=== PATIENT | male | born 1955 | race Caucasian/White ===

== ENCOUNTER → 2020-03-25 08:18 | Outpatient (BNVA) | payer MEDICARE, SELFPAY | PROVIDERS: PCP Registered Nurse; Visit Provider Internal Medicine | DX: I25.10 Atherosclerotic heart disease of native coronary artery without angina pectoris (principal); I10 Essential (primary) hypertension; I77.810 Thoracic aortic ectasia | CPT/HCPCS: 93005; 99212 ==

== ENCOUNTER 2020-08-09 18:23 | Emergency (ER) | payer MEDICARE, SELFPAY ==
--- NOTE | 2020-08-09 18:37 | ED.GENADULT ---
HPI - General Adult General Chief complaint: General Medical Stated complaint: FOOD STUCK IN THROAT Time Seen by Provider: 08/09/20 18:34 Source: patient and EMS Mode of arrival: EMS Limitations: no limitations History of Present Illness HPI narrative: 65 y/o male with history of HTN, CAD, DM who presents to the ED with feeling of food stuck in his throat. Right after he ate pot roast and potatoes for lunch at noon time he has had a feeling that the food is stuck in his throat. He has been able to drink some water but still felt like he had something stuck in there. He has no nausea, vomiting or abdominal pain. No shortness of breath or chest pain. This has never happened to him before. MD complaint: food stuck in throat Onset (ago): hour(s) (7) Location: neck Severity: moderate Quality: aching Pain Consistency: constant Relieving factors: none Exacerbating factors: eating Associated symptoms: denies other symptoms Treatments prior to arrival: none Related Data Home Medications Medication Instructions Recorded Confirmed aspirin 81 mg tablet,delayed 81 mg PO DAILY 03/25/20 03/25/20 release calcium citrate 200 mg 0 tab PO 03/25/20 03/25/20 calcium-vitamin D3 6.25 mcg (250 unit) tablet carvedilol 6.25 mg tablet 6.25 mg PO BID 03/25/20 03/25/20 fluoxetine 20 mg capsule 20 mg PO DAILY 03/25/20 03/25/20 folic acid 1 mg tablet 1 mg PO DAILY 03/25/20 03/25/20 gabapentin 300 mg capsule 300 mg PO TID 03/25/20 03/25/20 lisinopril 10 mg tablet 10 mg PO DAILY 03/25/20 03/25/20 metformin 500 mg tablet,extended 500 mg PO DAILY 03/25/20 03/25/20 release 24 hr multivitamin 1 tab PO DAILY 03/25/20 03/25/20 nitroglycerin 0.4 mg sublingual 0.4 mg SUBLINGUAL Q5M PRN 03/25/20 03/25/20 tablet omeprazole 20 mg capsule,delayed 20 mg PO DAILY 03/25/20 03/25/20 release secukinumab 150 mg/mL subcutaneous mg SUBCUT Q4W 03/25/20 03/25/20 pen injector umeclidinium 62.5 mcg/actuation 0 inh INHALATION 03/25/20 03/25/20 blister powder for inhalation Previous Rx's Medication Instructions Recorded atorvastatin 80 mg tablet 80 mg PO DAILY #90 tab 04/07/20 Allergies Allergy/AdvReac Type Severity Reaction Status Date / Time mirtazapine [From REMER[facility]] Allergy Intermediate NAUSEA Verified 08/09/20 18:46 phenytoin Allergy Unknown NAUSEA/VOMITING Verified 08/09/20 18:46 STOMACH UPSET Review of Systems Review of Systems: Constitutional: No Fever, No Chills ENT/Mouth: + sore throat, No Rhinorrhea, + Swallowing Difficulty, +Painful swallowing Cardiovascular: No Chest Pain, No SOB Respiratory: No Cough, No Sputum, No Wheezing, No dyspnea Gastrointestinal: No Nausea, No Vomiting, No Diarrhea, No abdominal Pain Musculoskeletal: No joint pain, No Myalgias Skin: No Skin Lesions, + rash Neuro: No Weakness, No Numbness, No Dizziness, No Headache Heme/Lymph: No Bruising, No Lymphadenopathy PMFSH Past Medical History Attestation statement: The following information was validated with the patient. Medical History Ascending aorta dilatation Atherosclerotic cardiovascular disease Diabetes Essential hypertension Gout Osteoarthritis Surgical History (Updated 03/25/20 @ 08:46 by ALBERTO Bean) No pertinent past surgical history Family History Family History (Updated 03/25/20 @ 08:42 by ALBERTO Bean) Family/Other No problems noted. Mother NSTEMI (non-ST elevated myocardial infarction) CVD (cardiovascular disease) Brother CVD (cardiovascular disease) NSTEMI (non-ST elevated myocardial infarction) Sister CVD (cardiovascular disease) NSTEMI (non-ST elevated myocardial infarction) Social History Social History (Updated 03/25/20 @ 08:41 by ALBERTO Bean) Advance Directives: No Advance Directives Information Provided: No Physical Exam Vital Signs: Vital Signs: Last Vital Signs Temp 97.9 F 08/09/20 18:43 Pulse 91 08/09/20 18:43 Resp 16 08/09/20 18:43 BP 135/87 08/09/20 18:43 Pulse Ox 97 08/09/20 18:43 Body Mass Index 27.8 Appearance: Alert. Oriented X3. No acute distress. Eyes: Pupils equal, round and reactive to light. ENT: Pharynx normal. Neck: Normal inspection. Neck supple. CVS: Normal heart rate and rhythm. Pulses normal. Respiratory: No respiratory distress. Breath sounds normal. Abdomen: Soft and nontender. +BS x4 Skin: Skin warm and dry. Normal skin color. Normal skin turgor. Erythematous plaque on forehead and neck, chronic. no warmth Extremities: No lower extremity edema. Neuro: Oriented X 3. No motor deficit. No sensory deficit. Course Course Course Narrative: 65 y/o male with foreign body sensation in the esophagus after eating pot roast 7 hours ago. He is able to tolerate thin liquids. He was also able to tolerate applesauce here in the ED, strongly favoring against esophageal obstruction. He is able to eat and drink. He is stable for discharge home with plan to f/u with GI if symptoms persist. He was encouraged to continue a soft diet until symptoms resolve. Patient expressed understanding. Discharge Plan Discharge Clinical Impression: Esophageal spasm Patient Disposition: Home, Self-Care Instructions: Esophageal Foreign Body (ED) Additional Instructions: Recommend following up with GI doctor tomorrow if you are still having symptoms. Stick to a soft diet until all of your symptoms are resolved. Because you are able to drink and eat applesauce, we know your esophagus is not blocked with food. If you are unable to tolerating drinking liquids or eating any soft foods results in vomiting come back to the ER for further evaluation. Follow up with your doctor this week. Prescriptions: No Action atorvastatin 80 mg tablet 80 mg PO DAILY Qty: 90 RF: 3 Cosentyx Pen (2 Pens) 150 mg/mL pen injector subcut Q4W RF: 0 calcium citrate-vitamin D3 200 mg-6.25 mcg (250 unit) tablet 0 tab PO RF: 0 metformin 500 mg tablet extended release 24 hr 500 mg PO DAILY RF: 0 fluoxetine 20 mg capsule 20 mg PO DAILY RF: 0 folic acid 1 mg tablet 1 mg PO DAILY RF: 0 omeprazole 20 mg capsule,delayed release(DR/EC) 20 mg PO DAILY RF: 0 gabapentin 300 mg capsule 300 mg PO TID RF: 0 lisinopril 10 mg tablet 10 mg PO DAILY RF: 0 aspirin 81 mg tablet,delayed release (DR/EC) 81 mg PO DAILY RF: 0 carvedilol 6.25 mg tablet 6.25 mg PO BID RF: 0 multivitamin Tablet 1 tab PO DAILY RF: 0 Incruse Ellipta 62.5 mcg/actuation blister with device 0 inh inhalation RF: 0 nitroglycerin 0.4 mg tablet, sublingual 0.4 mg sublingual Q5M PRNRF: 0 Referrals: Gregg Gunter MD [Physician] - 2 days (esophageal foreign body (sensation))
[2020-08-09 18:43] VITALS: BP 135/87; BP 138/88; PULSE 91; RESP 16; TEMP 36.6; O2SAT 97; O2SAT 98; BMI 27.8
--- NOTE | 2020-08-09 19:55 | PC.NURSE ---
KAYLEE Cobos contacted pt's [facility] and asked if they have a way to provide transport for pt to be returned to facility. Staff member contacted her customer service supervisor and called [facility] [place] with update. This RN spoke with [facility] staff member who states My customer service supervisor said 'hopefully he has money on him because we aren't able to provide a ride.' This RN explained that this facility is also unable to provide transportation and that pt will be DC to waiting room until he's able to obtain transportation home. [facility] staff states that's ok, sounds good, thank you.
== END 2020-08-09 20:49 | disposition home or self-care (01) ==
LOC: HO.ED 19:31
PROVIDERS: Emergency Provider Emergency Medicine; PCP Registered Nurse
DX: K22.4 Dyskinesia of esophagus (principal); I10 Essential (primary) hypertension; I25.10 Atherosclerotic heart disease of native coronary artery without angina pectoris; E11.9 Type 2 diabetes mellitus without complications; Z79.84 Long term (current) use of oral hypoglycemic drugs; Z79.899 Other long term (current) drug therapy
CPT/HCPCS: 99282; 99283

== ENCOUNTER → 2020-09-22 09:45 | Outpatient (REF) | payer MEDICARE, SELFPAY ==
--- NOTE | 2020-09-22 09:48 | CA_ITS ---
Transthoracic Echocardiogram Patient (Last, First, Middle): Casey Castrejon B Gender: Male Date of : 1955 Age: 65 Procedure Date: 09/22/2020 Procedure Type: Transthoracic Echocardiogram Location: OP Height: 182.88 cm Weight: 90.72 kg BSA: 2.13 m2 Heart Rate: bpm BP: 118 / 56 mmHg Contract Mail Carrier: Referring MD: Gilbert Sommers MD Symptoms: I77.810 - Thoracic aortic ectasia Study Quality: Fair ECG Rhythm: Sinus Conclusions: - The left ventricular systolic function is normal. The visually estimated ejection fraction is between 55-60%. - No obvious valvular pathology seen on this study. - There is mild dilatation of the ascending aorta measuring 4.20 cm. Findings Left Ventricle Normal left ventricular cavity size. There is mildly increased left ventricular wall thickness. The left ventricular systolic function is normal. The visually estimated ejection fraction is between 55-60%. There is no evidence of regional wall motion abnormalities. E/E prime ratio is between 8 and 15 consistent with indeterminate filling pressures. Evidence suggests grade I (mild) diastolic dysfunction. Right Ventricle Mildly increased right ventricular cavity size. There is normal right ventricular systolic function. Atria The left atrium is normal in size. The right atrium is normal in size. Aortic Valve There is a normal trileaflet aortic valve. There is no aortic valve stenosis. There is no aortic valve regurgitation. Mitral Valve The mitral valve appears normal. There is no mitral valve regurgitation. There is no mitral valve stenosis. Pulmonic Valve The pulmonic valve was not well visualized. Tricuspid Valve Normal tricuspid valve structure. There is no tricuspid valve regurgitation. The pulmonary artery systolic pressure is normal. Great Vessels There is mild dilatation of the ascending aorta measuring 4.20 cm. Venous The inferior vena cava is normal in size and collapses less than 50% with inspiration. Pericardium/Pleural There is no evidence of pericardial effusion. Prior Study Comparison No significant change compared to prior study dated: 11/04/2019. Recommendations, Care & Conclusions No obvious valvular pathology seen on this study. Measurements 2D Linear Measurements IVSd: 1.21 0.6-0.9/0.6-1.0 cm LVIDd: 4.51 3.9-5.3/4.2-5.9 cm LVIDd Index: 2.12 2.4-3.2/2.2-3.1 cm/m2 LVIDs: 3.44 2.0-3.6 cm LVPWd: 1.20 0.7-1.1 cm Ao Root: 3.90 2.1-3.5 cm LA Diam: 3.50 2.7-3.8/3.0-4.0 cm LAIDs Index: 1.64 1.5-2.3 cm/m2 LV Mass: 249.23 67-162/88-224 g LV Mass Index: 117.01 43-95/49-115 g/m2 LVOT Diam: 2.40 3.0+(-)1.3 cm 2D Systolic Function EF 4C: 55.20 >55% EF 2C: 52.80 >55% Mitral Valve MV Pk E: 0.50 MV PK A: 0.78 MV Decel Time: 186.00 E/A: 0.60 E'Lateral: 4.90 E'Medial: 4.46 E/E' Med: 11.10 E/E' Lat: 10.10 PHT: 55.00 MVA PHT: 4.00 Decel [place]: 2.67 Aortic Valve AoV Pk [place]: 0.86 AoV Mn [place]: 0.52 AoV VTI: 0.21 AoV Pk Grad: 3.00 Aov Mn Grad: 1.00 GOLDIE Cont.VTI: 3.31 LVOT LVOT Pk [place]: 0.59 LVOT Mn [place]: 0.35 LVOT VTI: 0.15 LVOT Pk Grad: 1.00 LVOT Mn Grad: 1.00 LVOT Diam: 2.40 LVOT Area: 4.52 Diastolic Function MV Pk E: 0.50 MV Pk A: 0.78 E/A: 0.60 E'Medial: 4.46 E/E' Med: 11.10 E' Laterial: 4.90 E/E' Lat: 10.10 Right Ventricle TAPSE (mm): 18.00 Tricuspid Valve TR Pk [place]: 1.83 TR Pk Grad: 13.00 RA Press: 8.00 RVSP: 16.00 Great Vessels Aorta Ao Root-2D: 3.90 2.0-3.7 cm Ao Asc: 4.20 2.1-3.4 cm Pulmonary Valve PV Pk [place]: 0.73 Peak PV Grad: 2.00 Updated in Other Vendor System with Status of Final Gilbert Sommers MD electronically signed on 09/23/2020 12:36:23 PM with status of Final
== END ==
LOC: HO.CARD 09:45
PROVIDERS: Visit Provider Internal Medicine
DX: I77.810 Thoracic aortic ectasia (principal)
CPT/HCPCS: 93306

== ENCOUNTER → 2020-09-28 09:18 | Outpatient (BNVA) | payer MEDICARE, SELFPAY | PROVIDERS: PCP Registered Nurse; Visit Provider Internal Medicine | DX: I25.10 Atherosclerotic heart disease of native coronary artery without angina pectoris (principal); I77.810 Thoracic aortic ectasia; I10 Essential (primary) hypertension | CPT/HCPCS: 99212 ==

== ENCOUNTER 2020-12-02 21:47 | Emergency (ER) | payer MEDICARE, SELFPAY ==
--- NOTE | ~2020-12-02 | XR_ITS ---
EXAMINATION: XR CHEST CLINICAL INFORMATION: Pneumonia COMPARISON: Chest x-ray September 28, 2018 TECHNIQUE: Frontal portable view of the chest was obtained. 10:36 PM FINDINGS: No significant abnormality is noted involving the heart, lungs, mediastinum, bony thorax or soft tissues. XR/XR chest 1V IMPRESSION: Unremarkable examination.
[2020-12-02 22:01] VITALS: BP 177/102; PULSE 92; O2SAT 98; BMI 27.8
[2020-12-02 22:07] VITALS: BP 164/95; PULSE 86; RESP 16; TEMP 37.1; O2SAT 96
[2020-12-02 23:09] LABS: Influenza A PCR NEGATIVE (Negative); Influenza B PCR NEGATIVE (Negative); Resp Syncy Virus RNA Qual PCR POSITIVE (Negative); SARS COV2 PCR INHOUSE NEGATIVE (Negative)
--- NOTE | 2020-12-03 00:23 | ED_ITS ---
HPI - URI/Sore Throat General Chief Complaint: Upper Respiratory Symptoms Stated Complaint: FLU LIKE SYMPTOMS Time Seen by Provider: 12/02/20 22:34 Source: patient Mode of arrival: ambulatory Limitations: no limitations History of Present Illness HPI Narrative: 65-year-old patient with past medical history of hypertension, CAD presents to ED for cough for couple of days. Patient denies any chest pain or shortness of breath. Patient denies any swelling of lower extremities, weakness, dizziness, coughing up blood, or calf pain. Patient unknown if any exposed to COVID Related Data Home Medications Medication Instructions Recorded Confirmed aspirin 81 mg tablet,delayed 81 mg PO DAILY 03/25/20 09/28/20 release calcium citrate 200 mg 0 tab PO 03/25/20 09/28/20 calcium-vitamin D3 6.25 mcg (250 unit) tablet carvedilol 6.25 mg tablet 6.25 mg PO BID 03/25/20 09/28/20 fluoxetine 20 mg capsule 20 mg PO DAILY 03/25/20 09/28/20 folic acid 1 mg tablet 1 mg PO DAILY 03/25/20 09/28/20 gabapentin 300 mg capsule 300 mg PO TID 03/25/20 09/28/20 lisinopril 10 mg tablet 10 mg PO DAILY 03/25/20 09/28/20 metformin 500 mg tablet,extended 500 mg PO DAILY 03/25/20 09/28/20 release 24 hr multivitamin 1 tab PO DAILY 03/25/20 09/28/20 nitroglycerin 0.4 mg sublingual 0.4 mg SUBLINGUAL Q5M PRN 03/25/20 09/28/20 tablet omeprazole 20 mg capsule,delayed 20 mg PO DAILY 03/25/20 09/28/20 release secukinumab 150 mg/mL subcutaneous mg SUBCUT Q4W 03/25/20 09/28/20 pen injector umeclidinium 62.5 mcg/actuation 0 inh INHALATION 03/25/20 09/28/20 blister powder for inhalation Previous Rx's Medication Instructions Recorded atorvastatin 80 mg tablet 80 mg PO DAILY #90 tab 04/07/20 albuterol sulfate 90 mcg/actuation 2 puff INHALATION QID PRN #8.5 g 12/03/20 aerosol inhaler benzonatate 100 mg capsule 100 mg PO TID PRN #15 cap 12/03/20 (Elisha Molina) Allergies Allergy/AdvReac Type Severity Reaction Status Date / Time mirtazapine [From REMERON] Allergy Intermediate NAUSEA Verified 09/28/20 09:25 phenytoin Allergy Unknown NAUSEA/VOMITING Verified 09/28/20 09:25 STOMACH UPSET Review of Systems Review of Systems: Yes all other systems are reviewed and are negative Constitutional: Constitutional: Reports as per HPI and Reports no additional constitutional complaints Eyes: Eyes: Reports as per HPI and Reports no additional eye complaints ENT: Reports system reviewed and no additional complaints, except as documented and Reports as per HPI Cardiovascular: Cardiovascular: Reports as per HPI and Reports no additional cardiovascular complaints Respiratory: Respiratory: Reports as per HPI and Reports no additional respiratory complaints Gastrointestinal: Gastrointestinal: Reports as per HPI and Reports no additional gastrointestinal complaints Genitourinary: Genitourinary: Reports no additional male genitourinary complaints and Reports as per HPI Musculoskeletal: Musculoskeletal: Reports no additional musculoskeletal complaints and Reports as per HPI Neurologic: Reports system reviewed and no additional complaints, except as documented and Reports as per HPI Psychiatric: Psychiatric: Reports no additional psychiatric complaints and Reports as per HPI [facility] Past Medical History Medical History Ascending aorta dilatation Atherosclerotic cardiovascular disease Diabetes Essential hypertension Gout Osteoarthritis Surgical History No pertinent past surgical history Family History Family History Family/Other No problems noted. Mother NSTEMI (non-ST elevated myocardial infarction) CVD (cardiovascular disease) Brother CVD (cardiovascular disease) NSTEMI (non-ST elevated myocardial infarction) Sister CVD (cardiovascular disease) NSTEMI (non-ST elevated myocardial infarction) Social History Social History (Updated 09/28/20 @ 09:25 by ALBERTO Bean) Patient Tobacco Use Status: Never used Tobacco Advance Directives: No Physical Exam Vital Signs: Vital Signs: Last Vital Signs Temp 98.7 F 12/02/20 22:07 Pulse 86 12/02/20 22:07 Resp 16 12/02/20 22:07 BP 164/95 H 12/02/20 22:07 Pulse Ox 96 10/13/21 22:07 Body Mass Index 27.8 Const: General: cooperative, healthy appearing, comfortable, no acute distress, well developed and alert Orientation/consciousness: patient oriented x3 HENMT: Head: Yes normal to inspection, Yes No palpable skull fracture present, Yes normocephalic, Yes atraumatic and No abrasion Eyes: General: appearance normal, both eyes and all related structures Neck: Neck: Yes normal visual inspection, Yes full ROM, Yes no lymphadenopathy, Yes no meningeal signs, Yes trachea midline, Yes supple and No tender Chest: Chest palpation & inspection: normal inspection of the chest and normal palpation of entire chest wall Resp: Effort & Inspection: normal respiratory effort and able to speak in complete sentences Auscultation: clear to auscultation bilaterally Cardio: Jugular venous distension: no JVD Heart sounds: S1 normal heart sound present and S2 normal heart sound present GI: Inspection: Yes normal to inspection and No abdominal wall ecchymosis Palpation (GI): Soft to palpation, not firm, nontender, no guarding and not rigid : General: No CVA tenderness and Yes no CVA tenderness Back/Spine/Pelvis: Back: no CVA tenderness, No CVA tenderness and No back tenderness Skin: General skin exam: no rashes or lesions noted and elasticity normal Neuro: General: patient oriented x3, gait normal, no meningeal signs and CN's II-XI intact bilaterally Cranial nerves: Yes CN's II-XII intact bilaterally Extrem: General: Yes normal to inspection and Yes full ROM Psych: Other: Negative for swelling of lower extremity, calf tenderness, pitting edema Appearance: grossly normal, well kempt and not disheveled Course Course Course Narrative: Patient COVID swab chest x-ray Reevaluation(s) Reevaluation #1: Patient came back positive for RSV and COVID swab is negative. Patient is not in distress. Patient vital signs are stable. Patient is not hypoxic. Patient is safe for discharge Time: 00:31 MDM - URI/Sore Throat MDM Narrative Medical decision making narrative: RSV Lab Data Labs: Lab Results 12/02/20 Range/Units 22:27 Coronavirus (PCR) NEGATIVE (Negative) Influenza Type A (PCR) NEGATIVE (Negative) Influenza Type B (PCR) NEGATIVE (Negative) RSV RNA Qual (PCR) POSITIVE A (Negative) Discharge Plan Discharge Clinical Impression: RSV bronchitis Patient Disposition: Home, Self-Care Instructions: Respiratory Syncytial Virus (ED), Acute Bronchitis (ED) Additional Instructions: Came back positive for RSV. Chest x-ray negative for pneumonia. You will be discharged with albuterol inhaler and Tessalon Perles for cough. Return to the ED for any chest pain, shortness of breath, weakness, dizziness, or any other concerning symptoms. Please follow-up with primary care provider Prescriptions: New albuterol sulfate 90 mcg/actuation HFA aerosol inhaler 2 puff inhalation QID PRN (Reason: shortness of breath or wheezing) Qty: 8.5 RF: 0 benzonatate [Tessalon Perles] 100 mg capsule 100 mg PO TID PRN (Reason: cough) Qty: 15 RF: 0 No Action atorvastatin 80 mg tablet 80 mg PO DAILY Qty: 90 RF: 3 Cosentyx Pen (2 Pens) 150 mg/mL pen injector subcut Q4W RF: 0 calcium citrate-vitamin D3 200 mg-6.25 mcg (250 unit) tablet 0 tab PO RF: 0 metformin 500 mg tablet extended release 24 hr 500 mg PO DAILY RF: 0 fluoxetine 20 mg capsule 20 mg PO DAILY RF: 0 folic acid 1 mg tablet 1 mg PO DAILY RF: 0 omeprazole 20 mg capsule,delayed release(DR/EC) 20 mg PO DAILY RF: 0 gabapentin 300 mg capsule 300 mg PO TID RF: 0 lisinopril 10 mg tablet 10 mg PO DAILY RF: 0 aspirin 81 mg tablet,delayed release (DR/EC) 81 mg PO DAILY RF: 0 carvedilol 6.25 mg tablet 6.25 mg PO BID RF: 0 multivitamin Tablet 1 tab PO DAILY RF: 0 Incruse Ellipta 62.5 mcg/actuation blister with device 0 inh inhalation RF: 0 nitroglycerin 0.4 mg tablet, sublingual 0.4 mg sublingual Q5M PRNRF: 0 Print Language: [place]
== END 2020-12-03 02:50 | disposition home or self-care (01) ==
PROVIDERS: Physician Assistant; Emergency Provider Emergency Medicine; PCP Registered Nurse
DX: J20.5 Acute bronchitis due to respiratory syncytial virus (principal); I10 Essential (primary) hypertension; E11.9 Type 2 diabetes mellitus without complications; I25.10 Atherosclerotic heart disease of native coronary artery without angina pectoris; Z79.82 Long term (current) use of aspirin; Z79.84 Long term (current) use of oral hypoglycemic drugs; Z79.899 Other long term (current) drug therapy; Z20.822 Contact with and (suspected) exposure to COVID-19
CPT/HCPCS: 0241U; 36415; 71045; 99283

== ENCOUNTER 2021-07-28 15:33 | Emergency (ER) | payer MEDICARE, SELFPAY ==
--- NOTE | ~2021-07-28 | CT_ITS ---
EXAMINATION: CT CERVICAL SPINE WITHOUT CONTRAST CLINICAL INFORMATION: Head trauma. EtOH. COMPARISON: None available. TECHNIQUE: Multidetector helical imaging of the cervical spine was obtained without intravenous contrast. Multiple axial reformats and coronal/sagittal reconstructions were created the technologist workstation for review. This CT examination was performed using dose optimization techniques as appropriate, variously including the following: *Automated exposure control. *Adjustment of mA and/or kV according to patient size (this includes techniques or standardized protocols for targeted exams where dose is matched to indication/reason for exam; i.e. extremities or head). *Use of iterative reconstruction technique. DLP: 490 mGy-cm FINDINGS: The atlantooccipital and atlantoaxial articulations remain well aligned. Moderate right convex curvature of the cervical spine. Mild degenerative anterolisthesis of C4 on C5. Otherwise, there is anatomic alignment of the vertebral bodies and posterior elements. No evidence of acute fracture or subluxation. The vertebral body heights and disc spaces are maintained. Advanced degenerative disc disease at C5-C6 and C6-C7. Moderate degenerative disc disease at C4-C5 and C7-T1. There is no prevertebral soft tissue swelling. The thyroid gland and remaining cervical soft tissues are normal in appearance. The lung apices demonstrate no abnormalities. SPINAL LEVELS: C2-C3: Mild disc-osteophyte complex. There is mild left and no right uncovertebral joint arthropathy. There is moderate left and mild right facet joint arthropathy. There is mild left and no right neural foraminal stenosis. There is no demonstrated spinal canal stenosis. C3-C4: Moderate disc-osteophyte complex. There is moderate left and no right uncovertebral joint arthropathy. There is severe left and mild right facet joint arthropathy. There is moderate left and no right neural foraminal stenosis. There appears to be mild spinal canal stenosis. C4-C5: Moderate disc-osteophyte complex. There is moderate left and no right uncovertebral joint arthropathy. There is severe left and mild right facet joint arthropathy. There is moderate left and no right neural foraminal stenosis. There is no demonstrated spinal canal stenosis. C5-C6: Moderate disc-osteophyte complex. There is severe bilateral uncovertebral joint arthropathy. There is moderate bilateral facet joint arthropathy. There is severe bilateral neural foraminal stenosis. There appears to be mild spinal canal stenosis. C6-C7: Moderate disc-osteophyte complex. There is severe bilateral uncovertebral joint arthropathy. There is moderate bilateral facet joint arthropathy. There is severe bilateral neural foraminal stenosis. There appears to be mild spinal canal stenosis. C7-T1: Mild disc-osteophyte complex. There is no uncovertebral joint arthropathy. There is mild bilateral facet joint arthropathy. There is no neural foraminal stenosis. There is no demonstrated spinal canal stenosis. CT/CT cervical spine wo con IMPRESSION: 1. No evidence of acute fracture or traumatic subluxation of the cervical spine. 2. Moderate to advanced multilevel degenerative spondyloarthropathy of the cervical spine as described in detail above. Most notably on this limited exam without intrathecal contrast, there appears to be mild spinal canal stenosis at C3-C4, C5-C6, and C6-C7. Moderate to severe neural foraminal stenoses from C3-C7.
--- NOTE | ~2021-07-28 | CT_ITS ---
EXAMINATION: CT HEAD WITHOUT CONTRAST CLINICAL INFORMATION: Trauma, rule out head injury. COMPARISON: 03/10/[address] scan[address] TECHNIQUE: Contiguous axial imaging was performed from the skull base to vertex without intravenous administration of contrast. Coronal and sagittal reformatted images were obtained. This CT examination was performed using dose optimization techniques as appropriate, variously including the following: *Automated exposure control *Adjustment of mA and/or kV according to patient size (this includes techniques or standardized protocols for targeted exams where dose is matched to indication/reason for exam; i.e. extremities or head) *Use of iterative reconstruction technique DLP: 761 mGy-cm FINDINGS: There is mild widening of the cortical sulci and associated ventriculomegaly. The lateral ventricles are symmetrical. Mild periventricular microvascular changes are seen. The third and fourth ventricles are in their normal midline position. The basilar and prepontine cisterns are unremarkable. There is no acute intra or extracerebral abnormality. There is no mass effect or midline shift. Sections through the bony calvarium are unremarkable. The orbits are intact. The paranasal sinuses show mild mucosal thickening in the sphenoid sinuses bilaterally, but otherwise are clear. Left ruth bullosa. The mastoid air cells are clear. CT/CT head/brain wo con IMPRESSION: No acute intracranial pathology.
[2021-07-28 15:55] VITALS: BP 126/86; PULSE 78; O2SAT 97
--- NOTE | 2021-07-28 16:16 | ED.ALCOHOL ---
HPI - Alcohol General Chief Complaint: Fall Stated Complaint: Fall ETOH Source: patient and EMS Mode of arrival: EMS Limitations: no limitations History of Present Illness HPI narrative: 66-year-old male presents via EMS for ETOH intoxication and injuries sustained from a fall. Patient is not complaining of any pain but is unable to describe the incident and may have lost consciousness. He has not had any prior visits for ETOH intoxication, however reports alcohol intake on a regular basis. MD complaint: alcohol intoxication Last drink: Just prior to admission Chronic alcohol use: Yes Previous visits for alcohol intoxication: No Recent trauma: Yes Associated symptoms: denies other symptoms Treatments prior to arrival: cervical collar Related Data Home Medications Medication Instructions Recorded Confirmed aspirin 81 mg tablet,delayed 81 mg PO DAILY 03/25/20 09/28/20 release calcium citrate 200 mg 0 tab PO 03/25/20 09/28/20 calcium-vitamin D3 6.25 mcg (250 unit) tablet carvedilol 6.25 mg tablet 6.25 mg PO BID 03/25/20 09/28/20 fluoxetine 20 mg capsule 20 mg PO DAILY 03/25/20 09/28/20 folic acid 1 mg tablet 1 mg PO DAILY 03/25/20 09/28/20 gabapentin 300 mg capsule 300 mg PO TID 03/25/20 09/28/20 lisinopril 10 mg tablet 10 mg PO DAILY 03/25/20 09/28/20 metformin 500 mg tablet,extended 500 mg PO DAILY 03/25/20 09/28/20 release 24 hr multivitamin 1 tab PO DAILY 03/25/20 09/28/20 nitroglycerin 0.4 mg sublingual 0.4 mg sublingual Q5M PRN 03/25/20 09/28/20 tablet omeprazole 20 mg capsule,delayed 20 mg PO DAILY 03/25/20 09/28/20 release secukinumab 150 mg/mL subcutaneous mg subcut Q4W 03/25/20 09/28/20 pen injector umeclidinium 62.5 mcg/actuation 0 inh inhalation 03/25/20 09/28/20 blister powder for inhalation Previous Rx's Medication Instructions Recorded albuterol sulfate 90 mcg/actuation 2 puff inhalation QID PRN 12/03/20 aerosol inhaler shortness of breath or wheezing #8.5 grams benzonatate 100 mg capsule 100 mg PO TID PRN cough #15 caps 12/03/20 (Elisha Molina) atorvastatin 80 mg tablet 80 mg PO DAILY #90 tabs 03/01/21 Allergies Allergy/AdvReac Type Severity Reaction Status Date / Time mirtazapine [From [facility]] Allergy Intermediate NAUSEA Verified 09/28/20 09:25 phenytoin Allergy Unknown NAUSEA/VOMITING Verified 09/28/20 09:25 STOMACH UPSET Review of Systems Review of Systems: Constitutional: No Fever, No Chills ENT/Mouth: No Ear Pain, No Hoarseness, No sore throat Eyes: No Eye Pain, No Swelling, No Redness, No Foreign Body Cardiovascular: No Chest Pain, No SOB Respiratory: No Cough, No Dyspnea Gastrointestinal: No Nausea, No Vomiting, No Diarrhea, No abdominal Pain Genitourinary: No Dysuria, No Hematuria Musculoskeletal: positive neck pain, No Myalgias, No Joint Swelling Skin: No Skin lacerations, No rash Neuro: No Weakness, No Numbness, No Paresthesias, No Loss of Consciousness, No Dizziness, No Headache Psych: No Anxiety/Panic, No Depression Heme/Lymph: no easy bruising, no Lymphadenopathy Endocrine: No Polyuria, No Polydipsia Yes all other systems are reviewed and are negative [facility] Past Medical History Attestation statement: The following information was validated with the patient. Source: old records reviewed Medical History Ascending aorta dilatation Atherosclerotic cardiovascular disease Diabetes Essential hypertension Gout Osteoarthritis Surgical History No pertinent past surgical history Family History Family History Family/Other No problems noted. Mother NSTEMI (non-ST elevated myocardial infarction) CVD (cardiovascular disease) Brother CVD (cardiovascular disease) NSTEMI (non-ST elevated myocardial infarction) Sister CVD (cardiovascular disease) NSTEMI (non-ST elevated myocardial infarction) Social History Social History Alcohol intake: current Alcohol intake frequency: 3 or more drinks per day Alcohol type: beer Patient Tobacco Use Status: Never used Tobacco Use of substances other than those prescribed or required for medical reasons: No Advance Directives: Yes Advance Directives Information Provided: No Advance Directives on File: No Physical Exam ED Vital Signs: Vital Signs - 24 hr 07/28/21 18:06 Temperature 97.5 F Pulse Rate 65 Respiratory Rate 19 Blood Pressure 136/70 Pulse Oximetry 99 Oxygen Delivery Method Room Air BMI result Body Mass Index 26.4 Appearance: Alert. Oriented X3. No acute distress. Eyes: Pupils equal, round and reactive to light. Sclera nonicteric. EOMI. No pain on extraocular movements. ENT: Pharynx normal. Moist mucous membranes. Neck: Normal inspection. Neck supple. Tenderness noted to C5 on palpation. C-collar in place. CVS: Normal heart rate and rhythm. Pulses normal. Respiratory: No respiratory distress. Breath sounds normal. Abdomen: Soft and nontender. Skin: Skin warm and dry. Normal skin color. Normal skin turgor. Extremities: No lower extremity edema. Moves all extremities against resistance. Neuro: No motor deficit. No sensory deficit. Cranial nerves 2-12 intact. NIH Stroke Scale Internal: Initial- Upon Arrival Level of Consciousness: Alert Level of Consciousness Questions: Answers both questions correctly Level of Consciousness Commands: Performs both tasks correctly Best Gaze: Normal Visual: No visual loss Facial Palsy: Normal Motor Arm (Right): No drift Motor Arm (Left): No drift Motor Leg (Right): No drift Motor Leg (Left): No drift Limb Ataxia: Absent Sensory: Normal Best Language: No aphasia Dysarthia: Normal Extinction and Inattention: No abnormality Score: 0 Course Course Course Narrative: 66-year-old male presents via EMS for ETOH intoxication with fall. Patient does not recall the entire events of the fall, and is complaining of neck pain at this time. He is in a C-collar which was placed by EMS. He does have full range of motion to all extremities, states to drink on a regular basis but has not visited this facility for ETOH intoxication in the past. He has had multiple visits for other medical concerns. At this time will order CT scan of head and cervical spine and EKG. Patient is not complaining any other illnesses, stated to have been in good health prior to his alcohol consumption. 18:20 CT head negative for acute findings requiring emergent intervention. CT cervical spine is pending at this time. Updated patient that he must keep his C-collar in place until CT cervical spine is read. 19:59 CT cervical spine negative for acute findings requiring emergent intervention. Will discharge this patient home with follow-up with primary care physician. Patient is not interested in detox at this time. Patient verbalized understanding of and agrees to plan of care to discharge home. Verbalized understanding of signs and symptoms indicating need for emergent intervention MDM - Alcohol MDM Narrative Medical decision making narrative: CVA, subdural, cervical fracture Differential Diagnosis Differential diagnosis: Likely alcohol dependence and alcohol intoxication Medical Records Attestation: I reviewed the patient's medical records. Lab Data Attestation: I reviewed the patient's lab results. Labs: Lab Results 07/28/21 Range/Units 18:02 POC Glucose 101 (60-115) mg/dL Imaging Data CT head cervical spine: Attestation: I personally reviewed and interpreted this imaging study as follows: Radiologist's impression: FINDINGS: There is mild widening of the cortical sulci and associated ventriculomegaly. The lateral ventricles are symmetrical. Mild periventricular microvascular changes are seen. The third and fourth ventricles are in their normal midline position. The basilar and prepontine cisterns are unremarkable. There is no acute intra or extracerebral abnormality. There is no mass effect or midline shift. Sections through the bony calvarium are unremarkable. The orbits are intact. The paranasal sinuses show mild mucosal thickening in the sphenoid sinuses bilaterally, but otherwise are clear. Left ruth bullosa. The mastoid air cells are clear. CT/CT head/brain wo con IMPRESSION: No acute intracranial pathology. FINDINGS: The atlantooccipital and atlantoaxial articulations remain well aligned. Moderate right convex curvature of the cervical spine. Mild degenerative anterolisthesis of C4 on C5. Otherwise, there is anatomic alignment of the vertebral bodies and posterior elements. No evidence of acute fracture or subluxation. The vertebral body heights and disc spaces are maintained. Advanced degenerative disc disease at C5-C6 and C6-C7. Moderate degenerative disc disease at C4-C5 and C7-T1. There is no prevertebral soft tissue swelling. The thyroid gland and remaining cervical soft tissues are normal in appearance. The lung apices demonstrate no abnormalities. SPINAL LEVELS: C2-C3: Mild disc-osteophyte complex.? There is mild left and no right uncovertebral joint arthropathy. There is moderate left and mild right facet joint arthropathy. There is mild left and no right neural foraminal stenosis. There is no demonstrated spinal canal stenosis. C3-C4: Moderate disc-osteophyte complex.? There is moderate left and no right uncovertebral joint arthropathy. There is severe left and mild right facet joint arthropathy. There is moderate left and no right neural foraminal stenosis. There appears to be mild spinal canal stenosis. C4-C5: Moderate disc-osteophyte complex.? There is moderate left and no right uncovertebral joint arthropathy. There is severe left and mild right facet joint arthropathy. There is moderate left and no right neural foraminal stenosis. There is no demonstrated spinal canal stenosis. C5-C6: Moderate disc-osteophyte complex.? There is severe bilateral uncovertebral joint arthropathy. There is moderate bilateral facet joint arthropathy. There is severe bilateral neural foraminal stenosis. There appears to be mild spinal canal stenosis. C6-C7: Moderate disc-osteophyte complex.? There is severe bilateral uncovertebral joint arthropathy. There is moderate bilateral facet joint arthropathy. There is severe bilateral neural foraminal stenosis. There appears to be mild spinal canal stenosis. C7-T1: Mild disc-osteophyte complex.? There is no uncovertebral joint arthropathy. There is mild bilateral facet joint arthropathy. There is no neural foraminal stenosis. There is no demonstrated spinal canal stenosis. CT/CT cervical spine wo con IMPRESSION: 1. No evidence of acute fracture or traumatic subluxation of the cervical spine. ? 2. Moderate to advanced multilevel degenerative spondyloarthropathy of the cervical spine as described in detail above. Most notably on this limited exam without intrathecal contrast, there appears to be mild spinal canal stenosis at C3-C4, C5-C6, and C6-C7. Moderate to severe neural foraminal stenoses from C3-C7.? ? ECG Data ECG #1: Attestation: I personally reviewed and interpreted this ECG as follows: ECG interpretation date: 07/28/21 ECG interpretation time: 17:57 Prior ECG tracings: available for review Interpretation: Vent. rate 67 BPM WA interval 182 ms QRS duration 90 ms QT/QTc 398/420 ms P-R-T axes -9 19 33 Normal sinus rhythm Normal ECG When compared with ECG of 29-SEP-2018 07:46, No significant change was found Discharge Plan Discharge Clinical Impression: Fall, Alcohol intoxication Patient Disposition: Home, Self-Care Instructions: Alcohol Intoxication (ED), Fall Prevention (ED) Additional Instructions: You were evaluated for injuries sustained from a fall. CT scan of head and cervical spine are negative for acute findings requiring emergent intervention. Please consider drinking less alcohol. Thank you for choosing this emergency department for evaluation. Please follow-up with primary care physician as needed. Return to the emergency department for any new, concerning, or worsening symptoms. Prescriptions: No Action atorvastatin 80 mg tablet 80 mg PO DAILY Qty: 90 3RF albuterol sulfate 90 mcg/actuation HFA aerosol inhaler 2 puff inhalation QID PRN (Reason: shortness of breath or wheezing) Qty: 8.5 0RF benzonatate [Tessalon Perles] 100 mg capsule 100 mg PO TID PRN (Reason: cough) Qty: 15 0RF Cosentyx Pen (2 Pens) 150 mg/mL pen injector subcut Q4W calcium citrate-vitamin D3 200 mg-6.25 mcg (250 unit) tablet 0 tab PO metformin 500 mg tablet extended release 24 hr 500 mg PO DAILY fluoxetine 20 mg capsule 20 mg PO DAILY folic acid 1 mg tablet 1 mg PO DAILY omeprazole 20 mg capsule,delayed release(DR/EC) 20 mg PO DAILY gabapentin 300 mg capsule 300 mg PO TID lisinopril 10 mg tablet 10 mg PO DAILY aspirin 81 mg tablet,delayed release (DR/EC) 81 mg PO DAILY carvedilol 6.25 mg tablet 6.25 mg PO BID multivitamin Tablet 1 tab PO DAILY Incruse Ellipta 62.5 mcg/actuation blister with device 0 inh inhalation nitroglycerin 0.4 mg tablet, sublingual 0.4 mg sublingual Q5M PRN Rx Instructions: do not exceed 3 doses per episode Referrals: Franchesca Sykes NP [Primary Care Provider] -
--- NOTE | 2021-07-28 16:28 | ECG_ITS ---
Test Reason : FALL Blood Pressure : / mmHG Vent. Rate : 067 BPM Atrial Rate : 067 BPM P-R Int : 182 ms QRS Dur : 090 ms QT Int : 398 ms P-R-T Axes : -09 019 033 degrees QTc Int : 420 ms Normal sinus rhythm Normal ECG When compared with ECG of 29-SEP-2018 07:46, No significant change was found Referred By: Cassie Lund Electronically Signed By:ARELI AGUILA
[2021-07-28 18:05] LABS: Glucose, Whole Blood 101 mg/dL (60-115)
[2021-07-28 18:06] VITALS: BP 136/70; PULSE 65; RESP 19; TEMP 36.4; O2SAT 99; BMI 26.4
--- NOTE | 2021-07-28 22:31 | PC.NURSE ---
pt comes from [facility], spoke with Rosa Maria, they are unable to get pt a ride home until the morning.
--- NOTE | 2021-07-28 22:33 | PC.NURSE ---
[facility] Contact Info: Rosa Maria (director):
--- NOTE | 2021-07-29 03:40 | PC.NURSE ---
call out to [facility] spoke to Taylor, to notify that pt is ready for discharge and needs a ride. Taylor states that it will likely be around 8am
[2021-07-29 03:42] VITALS: BP 143/81; PULSE 73; RESP 18; TEMP 37.3; O2SAT 96
--- NOTE | 2021-07-29 07:27 | PC.NURSE ---
pt sleeping comfortbly. no c/o pain or discomfort. awaiting ride
== END 2021-07-29 09:24 | disposition home or self-care (01) ==
PROVIDERS: Emergency Provider Internal Medicine; PCP Registered Nurse
DX: F10.220 Alcohol dependence with intoxication, uncomplicated (principal); Y90.9 Presence of alcohol in blood, level not specified; M54.2 Cervicalgia; Z91.81 History of falling
CPT/HCPCS: 70450; 72125; 82947; 93005; 99284

== ENCOUNTER → 2021-09-23 13:29 | Outpatient (REF) | payer OTHER, SELFPAY ==
--- NOTE | 2021-09-23 13:31 | CA_ITS ---
Transthoracic Echocardiogram Patient (Last, First, Middle): Casey Castrejon B Gender: Male Date of : 1955 Age: 66 Procedure Date: 09/23/2021 Procedure Type: Transthoracic Echocardiogram Location: OP Height: 182.88 cm Weight: 90.72 kg BSA: 2.13 m2 Heart Rate: bpm BP: 130 / 70 mmHg Legislative Assistant: RODOLFO Referring MD: Gilbert Sommers MD Powerhouse Mechanic Apprentice: Nic Mendoza MD Symptoms: I77.810 - Thoracic aortic ectasia Study Quality: Fair ECG Rhythm: Sinus Conclusions: - 1. Normal LV systolic function with impaired relaxation filling pattern next 2. Limited visualization of cardiac valves with normal cardiac valvular Doppler 3. Mildly dilated ascending aorta at 4.2 cm Findings Left Ventricle Normal left ventricular size, thickness, and systolic function. The visually estimated ejection fraction is between 60-65%. Regional wall motion abnormalities can not be excluded due to suboptimal endocardial definition. Spectral Doppler is indicative of an impaired relaxation filling pattern. E/E prime ratio is between 8 and 15 consistent with indeterminate filling pressures. Right Ventricle The right ventricle was not well visualized. There is normal right ventricular systolic function. Atria The left atrium is normal in size. Interatrial shunt cannot be excluded. The right atrium is normal in size. Aortic Valve The aortic valve was not well visualized. There is no aortic valve stenosis. There is no aortic valve regurgitation. Mitral Valve The mitral valve was not well visualized. There is trace mitral valve regurgitation. There is no mitral valve stenosis. Pulmonic Valve The pulmonic valve was not well visualized. Tricuspid Valve The tricuspid valve was not well visualized. Tricuspid regurgitation envelope is inadequate for calculation of right ventricular systolic pressure. Great Vessels The pulmonary artery was not well visualized. There is mild dilatation of the ascending aorta measuring 4.20 cm. Venous The inferior vena cava was not well visualized. Pericardium/Pleural The pericardium was not well visualized. Prior Study Comparison No significant change compared to prior study dated: 09/22/2020. Recommendations, Care & Conclusions Recommend contrast in the future to improve endocardial definition. Measurements 2D Linear Measurements IVSd: 1.01 0.6-0.9/0.6-1.0 cm LVIDd: 4.11 3.9-5.3/4.2-5.9 cm LVIDd Index: 1.93 2.4-3.2/2.2-3.1 cm/m2 LVIDs: 2.81 2.0-3.6 cm LVPWd: 0.91 0.7-1.1 cm LA Diam: 3.10 2.7-3.8/3.0-4.0 cm LAIDs Index: 1.46 1.5-2.3 cm/m2 LV Mass: 209.47 67-162/88-224 g LV Mass Index: 98.34 43-95/49-115 g/m2 LVOT Diam: 2.10 3.0+(-)1.3 cm 2D Systolic Function EF 4C: 62.90 >55% EF 2C: 59.50 >55% EF BiP: 61.80 >55% Mitral Valve MV Pk E: 0.65 MV PK A: 0.93 MV Decel Time: 259.00 E/A: 0.70 E'Lateral: 5.98 E'Medial: 4.57 E/E' Med: 14.20 E/E' Lat: 10.80 PHT: 76.00 MVA PHT: 2.89 Decel Mono: 2.50 Aortic Valve AoV Pk Franklin: 0.94 AoV Mn Franklin: 0.61 AoV VTI: 0.21 AoV Pk Grad: 4.00 Aov Mn Grad: 2.00 GOLDIE Cont.VTI: 3.16 LVOT LVOT Pk Franklin: 0.75 LVOT Mn Franklin: 0.49 LVOT VTI: 0.19 LVOT Pk Grad: 2.00 LVOT Mn Grad: 1.00 LVOT Diam: 2.10 LVOT Area: 3.46 Diastolic Function MV Pk E: 0.65 MV Pk A: 0.93 E/A: 0.70 E'Medial: 4.57 E/E' Med: 14.20 E' Laterial: 5.98 E/E' Lat: 10.80 Right Ventricle TAPSE (mm): 21.20 TVS' Franklin: 10.60 Great Vessels Aorta Sinus of Valsalva: 3.88 2.0-3.[address] Ridge: 3.32 1.7-3.4 cm Ao Asc: 4.20 2.1-3.4 cm Updated in Other Vendor System with Status of Final Nic Mendoza MD electronically signed on 09/24/2021 5:07:31 PM with status of Final
== END ==
LOC: HO.CARD 13:29
PROVIDERS: PCP Registered Nurse; Visit Provider Internal Medicine
DX: I77.810 Thoracic aortic ectasia (principal)
CPT/HCPCS: 93306

== ENCOUNTER 2021-10-01 03:20 | Emergency (ER) | payer OTHER, SELFPAY ==
--- NOTE | ~2021-10-01 | CT_ITS ---
EXAMINATION: CT ABDOMEN AND PELVIS WITHOUT CONTRAST CLINICAL INFORMATION: Left abdominal pain. Rule out kidney stone. COMPARISON: 07/29/2018 TECHNIQUE: Multidetector volumetric imaging was performed from the superior aspect of the liver through the pubic symphysis. Sagittal and coronal reformatted images were obtained on the technologist's workstation. This CT examination was performed using dose optimization techniques as appropriate, variously including the following: *Automated exposure control *Adjustment of mA and/or kV according to patient size (this includes techniques or standardized protocols for targeted exams where dose is matched to indication/reason for exam; i.e. extremities or head) *Use of iterative reconstruction technique DLP: 575 mGy-cm FINDINGS: LUNG BASES: The visualized lung bases are unremarkable. LIVER, GALLBLADDER, AND BILIARY TREE: The liver is normal in size, shape, and attenuation. No focal hepatic lesion or biliary ductal dilatation is present. The gallbladder is unremarkable with no evidence of radiopaque gallstones, gallbladder wall thickening, or obvious pericholecystic inflammatory changes. PANCREAS: Unremarkable. SPLEEN: Unremarkable. ADRENAL GLANDS: Unremarkable. KIDNEYS AND URETERS: The kidneys are normal in size, shape, and attenuation. No hydronephrosis, hydroureter, or calculi seen. Symmetric perinephric stranding. BLADDER: Normally distended with mild circumferential wall thickening. GASTROINTESTINAL TRACT: The stomach is unremarkable. Normal caliber small bowel. No obstruction. Normal appendix. No colonic wall thickening or acute inflammatory change. Minimal diverticulosis without diverticulitis. No free air or free fluid. ABDOMINAL WALL: No significant hernia is appreciated. LYMPH NODES: Normal. VASCULAR: Normal caliber aorta with minimal atherosclerotic calcification. PELVIC VISCERA: The prostate and seminal vesicles are unremarkable. OSSEOUS STRUCTURES: No acute or suspicious osseous abnormality. Grade 2 anterolisthesis of L4 on L5 with associated bilateral pars defects. Vacuum disc phenomenon at this level. Mild degenerative changes of the hips. CT/CT abdomen pelvis wo con IMPRESSION: No acute finding of the abdomen or pelvis. No hydronephrosis or nephrolithiasis. Symmetric perinephric stranding which is chronic. Circumferential bladder wall thickening without inflammation. This could be associated with underdistention or outlet obstruction. Fleischner guidelines were followed.
[2021-10-01 03:23] VITALS: BP 170/80; PULSE 77; O2SAT 100
[2021-10-01 03:28] VITALS: BP 170/80; BMI 27.1
[2021-10-01 03:36] VITALS: BP 178/103; PULSE 79; RESP 22; TEMP 36.2; O2SAT 97
--- NOTE | 2021-10-01 03:37 | ECG_ITS ---
Test Reason : ABD PAIN Blood Pressure : / mmHG Vent. Rate : 078 BPM Atrial Rate : 078 BPM P-R Int : 156 ms QRS Dur : 084 ms QT Int : 356 ms P-R-T Axes : -12 020 034 degrees QTc Int : 405 ms Normal sinus rhythm Normal ECG When compared with ECG of 28-JUL-2021 17:57, No significant change was found Referred By: Jaleel Ulloa Electronically Signed By:ARELI AGUILA
--- NOTE | 2021-10-01 03:43 | ED.ABDPAIN ---
HPI - Abdominal Pain General Chief Complaint: Abdominal Pain Stated Complaint: stomache pain Time Seen by Provider: 10/01/21 03:36 Source: patient and EMS Mode of arrival: EMS Limitations: no limitations History of Present Illness HPI narrative: 66-year-old male came in by ambulance for evaluation of left-sided abdominal pain with feeling nauseous and dry heaving. Patient is a half-way resident live independently normally walk with a cane, patient has a history of alcohol dependent still currently drink alcohol as per patient not as heavy as he used to. Describe left side abdominal pain that started suddenly couple hours before arrival described as a constant severe pain /, no radiation to the pain, pain is associated with nausea and vomiting, nothing relieves the pain, nothing make it worse, patient documented normal bowel movements and normal urination, no previous abdominal surgery as per patient. No abdominal trauma, no fever, no chills, no diarrhea. No history of kidney stones or intra-abdominal pathology. Related Data Home Medications Medication Instructions Recorded Confirmed aspirin 81 mg tablet,delayed 81 mg PO DAILY 03/25/20 09/28/20 release calcium citrate 200 mg 0 tab PO 03/25/20 09/28/20 calcium-vitamin D3 6.25 mcg (250 unit) tablet carvedilol 6.25 mg tablet 6.25 mg PO BID 03/25/20 09/28/20 fluoxetine 20 mg capsule 20 mg PO DAILY 03/25/20 09/28/20 folic acid 1 mg tablet 1 mg PO DAILY 03/25/20 09/28/20 gabapentin 300 mg capsule 300 mg PO TID 03/25/20 09/28/20 lisinopril 10 mg tablet 10 mg PO DAILY 03/25/20 09/28/20 metformin 500 mg tablet,extended 500 mg PO DAILY 03/25/20 09/28/20 release 24 hr multivitamin 1 tab PO DAILY 03/25/20 09/28/20 nitroglycerin 0.4 mg sublingual 0.4 mg sublingual Q5M PRN 03/25/20 09/28/20 tablet omeprazole 20 mg capsule,delayed 20 mg PO DAILY 03/25/20 09/28/20 release secukinumab 150 mg/mL subcutaneous mg subcut Q4W 03/25/20 09/28/20 pen injector umeclidinium 62.5 mcg/actuation 0 inh inhalation 03/25/20 09/28/20 blister powder for inhalation Previous Rx's Medication Instructions Recorded albuterol sulfate 90 mcg/actuation 2 puff inhalation QID PRN 12/03/20 aerosol inhaler shortness of breath or wheezing #8.5 grams benzonatate 100 mg capsule 100 mg PO TID PRN cough #15 caps 12/03/20 (Elisha Molina) atorvastatin 80 mg tablet 80 mg PO DAILY #90 tabs 03/01/21 Allergies Allergy/AdvReac Type Severity Reaction Status Date / Time mirtazapine [From REM[facility]] Allergy Intermediate NAUSEA Verified 09/28/20 09:25 phenytoin Allergy Unknown NAUSEA/VOMITING Verified 09/28/20 09:25 STOMACH UPSET Review of Systems Review of Systems All other systems are reviewed and are negative Constitutional: Reports as per HPI and Reports no additional constitutional complaints Eyes: Reports as per HPI and Reports no additional eye complaints Reports system reviewed and no additional complaints, except as documented Cardiovascular: Reports as per HPI and Reports no additional cardiovascular complaints Respiratory: Reports as per HPI and Reports no additional respiratory complaints Gastrointestinal: Reports as per HPI and Reports no additional gastrointestinal complaints Genitourinary: Reports no additional female genitourinary complaints Musculoskeletal: Reports no additional musculoskeletal complaints Skin/Breast: Reports system reviewed and no additional complaints, except as docu Psychiatric: Reports no additional psychiatric complaints Endocrine: Reports no additional endocrine complaints Hematologic/Lymphatic: Reports no additional hematologic/lymphatic complaints Allergic/Immunologic: Reports no additional allergic/immunologic complaints Reports system reviewed and no additional complaints, except as documented and Reports Abnormal speech present COUNT INCLUDES THE [facility] Past Medical History Medical History Ascending aorta dilatation Atherosclerotic cardiovascular disease Diabetes Essential hypertension Gout Osteoarthritis Surgical History No pertinent past surgical history Family History Family History Family/Other No problems noted. Mother NSTEMI (non-ST elevated myocardial infarction) CVD (cardiovascular disease) Brother CVD (cardiovascular disease) NSTEMI (non-ST elevated myocardial infarction) Sister CVD (cardiovascular disease) NSTEMI (non-ST elevated myocardial infarction) Social History Social History Alcohol intake: current Alcohol intake frequency: 3 or more drinks per day Alcohol type: beer Patient Tobacco Use Status: Never used Tobacco Advance Directives: Yes Advance Directives Information Provided: No Advance Directives on File: No Physical Exam ED Vital Signs: Vital Signs - 24 hr 10/01/21 03:36 10/01/21 06:20 Temperature 97.2 F Pulse Rate 79 72 Respiratory Rate 22 H 20 Blood Pressure 178/103 H 170/82 H Pulse Oximetry 97 97 Oxygen Delivery Method Room Air Room Air BMI result Body Mass Index 27.1 Vital signs have been reviewed as appeared to be correct. Blood pressure normal. Heart rate normal. Respiration rate normal. Temperature normal. Oxygen saturation normal. Appearance: Alert. Oriented X3. No acute distress. Head: Normal external exam. Normocephalic. Atraumatic. No Georges signs noted. No raccoon eyes noted Eyes: PERRLA. EOMI. Conjunctiva and sclera normal. Eyelids normal. ENT: TM's Normal. Pharynx normal. Uvula midline. Moist mucous membranes. No trismus noted. No drooling noted. No muffled voice noted. Neck: Normal inspection. Neck supple. FROM. No adenopathy. Thyroid Normal. No meningeal signs. No neck mass noted. CVS: Normal heart rate and rhythm. Heart sound normal. No murmurs noted. Pulses normal throughout. Respiratory: No respiratory distress. Painless inspiration. Breath sounds normal. No wheezes/rales/rhonchi noted. Chest nontender. No accessory muscle usage noted or decreased air movement noted. Abdomen: Soft, obese, left abdominal tenderness, no guarding, no rebound tenderness.. Bowel sounds normal in all 4 quadrants. No distention noted. No organomegaly noted. No visible injury noted. Back: No CVA tenderness. Full range of motion noted. Skin: Skin warm and dry. Normal skin color. Normal skin turgor. No rashes/lesions/lacerations noted. Extremities: No lower extremity edema. Extremities exhibit normal range of motion. Extremities nontender. Neuro: Oriented X 3. Cranial nerve exam: II-XII are grossly intact No motor deficit. No sensory deficit. Reflexes normal. Course Course Course Narrative: 66-year-old male came in for left-sided abdominal pain and vomiting patient had negative workup in the emergency room including CT of the abdomen pelvis, patient now feels better and able to tolerate p.o. intake without vomiting or abdominal pain. Will discharge back to the half-way. MDM - Abdominal Pain Medical Records Attestation: I reviewed the patient's medical records. Lab Data Attestation: I reviewed the patient's lab results. Result diagrams: 10/01/21 03:47 10/01/21 03:47 Labs: Lab Results 10/01/21 10/01/21 10/01/21 Range/Units 03:47 03:47 03:47 WBC 8.8 (4.8-10.8) X10*3/uL RBC 3.92 L (4.60-5.80) X10*6/uL Hgb 12.4 L (14.0-18.0) g/dl Hct 35.8 L (42.0-52.0) % MCV 91.3 (80.0-98.0) fL MCH 31.6 (27.0-33.0) pg MCHC 34.6 (31.0-36.0) g/dl RDW 12.6 (11.0-16.0) % Plt Count 160 (160-400) X10*3/uL MPV 9.2 L (9.4-12.4) fL Immature Gran % (Auto) 0.5 H (0.0-0.4) % Neut % (Auto) 81.9 H (45-73) % Lymph % (Auto) 10.4 L (20-40) % [place] % (Auto) 5.7 (2-11) % Eos % (Auto) 1.2 (0-4) % Baso % (Auto) 0.3 (0-2) % Lymph # (Auto) 0.9 L (1.2-4.9) X10*3/uL [place] # (Auto) 0.5 (0.1-1.2) X10*3/uL Eos # (Auto) 0.1 (0.0-0.4) X10*3/uL Baso # (Auto) 0.0 (0.0-0.2) X10*3/uL Abs Immat Gran (auto) 0.04 H (0.00-0.03) X10*3/uL Absolute Neuts (auto) 7.2 (2.0-8.3) x10*3/uL Absolute Nucleated RBC 0.000 (0.0-0.012) X10*3/uL Nucleated RBC % (auto) 0.0 (0.0-0.2) /100WBC Sodium 132 L (135-145) mmol/L Potassium 5.0 (3.3-5.1) mmol/L Chloride 97 (96-108) mmol/L Carbon Dioxide 23 (22-29) mmol/L Anion Gap 17 (12-20) BUN 9 (9-16) mg/dL Creatinine 0.99 (0.5-1.4) mg/dL Estim Creat Clear Calc 80.5 Estimated GFR > 60 Random Glucose 148 H (60-115) mg/dL Calcium 9.2 (8.4-10.2) mg/dL Total Bilirubin 0.7 (0.0-1.0) mg/dL Direct Bilirubin 0.3 (0.0-0.5) mg/dL AST 19 (5-37) U/L ALT 13 (0-40) U/L Alkaline Phosphatase 98 (39-117) U/L Troponin I High Sens 6.5 (<3.5-35.0) ng/L B-Natriuretic Peptide 87 (<100) pg/mL Total Protein 7.4 (6.5-8.0) g/dL Albumin 4.4 (3.5-5.0) g/dL Lipase 35 (8-78) U/L Urine Color Urine Appearance Urine pH (5.0-8.0) Ur Specific [place] (1.005-1.025) Urine Protein (NEG-TRACE) MG/DL Urine Glucose (UA) (NEG) MG/DL Urine Ketones (NEG) MG/DL Urine Blood (NEG) Urine Nitrite (NEG) Ur Leukocyte Esterase (NEG) Ethyl Alcohol < 10 mg/dL 10/01/21 Range/Units 03:47 WBC (4.8-10.8) X10*3/uL RBC (4.60-5.80) X10*6/uL Hgb (14.0-18.0) g/dl Hct (42.0-52.0) % MCV (80.0-98.0) fL MCH (27.0-33.0) pg MCHC (31.0-36.0) g/dl RDW (11.0-16.0) % Plt Count (160-400) X10*3/uL MPV (9.4-12.4) fL Immature Gran % (Auto) (0.0-0.4) % Neut % (Auto) (45-73) % Lymph % (Auto) (20-40) % [place] % (Auto) (2-11) % Eos % (Auto) (0-4) % Baso % (Auto) (0-2) % Lymph # (Auto) (1.2-4.9) X10*3/uL [place] # (Auto) (0.1-1.2) X10*3/uL Eos # (Auto) (0.0-0.4) X10*3/uL Baso # (Auto) (0.0-0.2) X10*3/uL Abs Immat Gran (auto) (0.00-0.03) X10*3/uL Absolute Neuts (auto) (2.0-8.3) x10*3/uL Absolute Nucleated RBC (0.0-0.012) X10*3/uL Nucleated RBC % (auto) (0.0-0.2) /100WBC Sodium (135-145) mmol/L Potassium (3.3-5.1) mmol/L Chloride (96-108) mmol/L Carbon Dioxide (22-29) mmol/L Anion Gap (12-20) BUN (9-16) mg/dL Creatinine (0.5-1.4) mg/dL Estim Creat Clear Calc Estimated GFR Random Glucose (60-115) mg/dL Calcium (8.4-10.2) mg/dL Total Bilirubin (0.0-1.0) mg/dL Direct Bilirubin (0.0-0.5) mg/dL AST (5-37) U/L ALT (0-40) U/L Alkaline Phosphatase (39-117) U/L Troponin I High Sens (<3.5-35.0) ng/L B-Natriuretic Peptide (<100) pg/mL Total Protein (6.5-8.0) g/dL Albumin (3.5-5.0) g/dL Lipase (8-78) U/L Urine Color YELLOW Urine Appearance CLEAR Urine pH 6.0 (5.0-8.0) Ur Specific [place] 1.010 (1.005-1.025) Urine Protein NEG (NEG-TRACE) MG/DL Urine Glucose (UA) NEG (NEG) MG/DL Urine Ketones NEG (NEG) MG/DL Urine Blood NEG (NEG) Urine Nitrite NEG (NEG) Ur Leukocyte Esterase NEG (NEG) Ethyl Alcohol mg/dL Discharge Plan Discharge Clinical Impression: Abdominal pain Patient Disposition: Xfer [facility] Transfer Details: Back to the half-way Instructions: Abdominal Pain (ED) Prescriptions: No Action atorvastatin 80 mg tablet 80 mg PO DAILY Qty: 90 3RF albuterol sulfate 90 mcg/actuation HFA aerosol inhaler 2 puff inhalation QID PRN (Reason: shortness of breath or wheezing) Qty: 8.5 0RF benzonatate [Tessalon Perles] 100 mg capsule 100 mg PO TID PRN (Reason: cough) Qty: 15 0RF Cosentyx Pen (2 Pens) 150 mg/mL pen injector subcut Q4W calcium citrate-vitamin D3 200 mg-6.25 mcg (250 unit) tablet 0 tab PO metformin 500 mg tablet extended release 24 hr 500 mg PO DAILY fluoxetine 20 mg capsule 20 mg PO DAILY folic acid 1 mg tablet 1 mg PO DAILY omeprazole 20 mg capsule,delayed release(DR/EC) 20 mg PO DAILY gabapentin 300 mg capsule 300 mg PO TID lisinopril 10 mg tablet 10 mg PO DAILY aspirin 81 mg tablet,delayed release (DR/EC) 81 mg PO DAILY carvedilol 6.25 mg tablet 6.25 mg PO BID multivitamin Tablet 1 tab PO DAILY Incruse Ellipta 62.5 mcg/actuation blister with device 0 inh inhalation nitroglycerin 0.4 mg tablet, sublingual 0.4 mg sublingual Q5M PRN Rx Instructions: do not exceed 3 doses per episode Referrals: Physician,Unknown J [Primary Care Provider] -
[2021-10-01 03:51] LABS: Basophils Percent Auto 0.3 % (0-2); Eosinophils Absolute Auto 0.1 X10*3/uL (0.0-0.4); Eosinophils Percent Auto 1.2 % (0-4); Hematocrit 35.8 % (42.0-52.0); Hemoglobin 12.4 g/dl (14.0-18.0); Imm Gran Abs Auto 0.04 X10*3/uL (0.00-0.03); Imm Gran Pct Auto 0.5 % (0.0-0.4); Lymphocytes Absolute Auto 0.9 X10*3/uL (1.2-4.9); Lymphocytes Percent Auto 10.4 % (20-40); MANUAL DIFF FLAG NO; Mean Corpuscular HGB Conc 34.6 g/dl (31.0-36.0); Mean Corpuscular Hemoglobin 31.6 pg (27.0-33.0); Mean Corpuscular Volume 91.3 fL (80.0-98.0); Mean Platelet Volume 9.2 fL (9.4-12.4); Monocytes Absolute Auto 0.5 X10*3/uL (0.1-1.2); Monocytes Percent Auto 5.7 % (2-11); Neutrophils Absolute Auto 7.2 x10*3/uL (2.0-8.3); Neutrophils Percent Auto 81.9 % (45-73); Platelet Count 160 X10*3/uL (160-400); Red Blood Count 3.92 X10*6/uL (4.60-5.80); Red Cell Distribution Width 12.6 % (11.0-16.0); White Blood Count 8.8 X10*3/uL (4.8-10.8)
[2021-10-01] MEDS: ondansetron HCL 4 MG/2 ML VIAL IVPUSH ×2 (03:51→04:36)
[2021-10-01] MEDS: Morphine Sulfate 2 MG/ML CARTRIDGE IVPUSH (03:51)
[2021-10-01 03:52] LABS: Appearance Urine CLEAR; Color Urine YELLOW; Glucose Urine UA NEG (NEG); Leukocyte Esterase Urine NEG (NEG); Nitrite Urine NEG (NEG); Urine Blood NEG (NEG); Urine Ketones NEG (NEG); Urine Protein NEG (NEG-TRACE)
[2021-10-01] MEDS: 0.9 % Sodium Chloride 1,000 ML 999 ML IV (03:52)
[2021-10-01 04:10] LABS: B Type Natriuretic Peptide 87 pg/mL (<100); Troponin-I High Sensitivity 6.5 ng/L (<3.5-35.0)
[2021-10-01 04:13] LABS: Alanine Aminotransferase 13 U/L (0-40); Albumin Level 4.4 g/dL (3.5-5.0); Alkaline Phosphatase 98 U/L (39-117); Anion Gap 17 (12-20); Aspartate Amino Transferase 19 U/L (5-37); Bilirubin Direct 0.3 mg/dL (0.0-0.5); Bilirubin Total 0.7 mg/dL (0.0-1.0); Blood Urea Nitrogen 9 mg/dL (9-16); Calcium 9.2 mg/dL (8.4-10.2); Carbon Dioxide 23 mmol/L (22-29); Chloride 97 mmol/L (96-108); Creatinine Clr Calc Pharmacy 80.5; Estimated Glomerular Filt Rate > 60; Ethanol < 10 mg/dL; Glucose Random 148 mg/dL (60-115); Lipase 35 U/L (8-78); Sodium 132 mmol/L (135-145); Total Protein 7.4 g/dL (6.5-8.0)
[2021-10-01 06:20] VITALS: BP 170/82; PULSE 72; RESP 20; O2SAT 97
== END 2021-10-01 07:12 | disposition skilled nursing facility (03) ==
PROVIDERS: Emergency Provider Emergency Medicine
DX: R10.9 Unspecified abdominal pain (principal); I10 Essential (primary) hypertension; E11.9 Type 2 diabetes mellitus without complications; F10.20 Alcohol dependence, uncomplicated; Y90.0 Blood alcohol level of less than 20 mg/100 ml; I25.10 Atherosclerotic heart disease of native coronary artery without angina pectoris; I77.810 Thoracic aortic ectasia
CPT/HCPCS: 36415; 74176; 80048; 80076; 81003; 82077; 83690; 83880; 84484; 85025; 93005; 96361; 96374; 96375; 96376; 99284; 99285; J2270; J2405

== ENCOUNTER → 2021-10-04 09:17 | Outpatient (BNVA) | payer OTHER, SELFPAY | PROVIDERS: PCP Registered Nurse; Visit Provider Internal Medicine | DX: I25.10 Atherosclerotic heart disease of native coronary artery without angina pectoris (principal); I10 Essential (primary) hypertension; I77.810 Thoracic aortic ectasia; Z79.899 Other long term (current) drug therapy | CPT/HCPCS: 99212 ==

== ENCOUNTER 2022-04-19 13:34 | Outpatient (REF) | payer OTHER, SELFPAY ==
--- NOTE | ~2022-04-19 | US_ITS ---
EXAMINATION: NONINVASIVE ASSESSMENT OF THE ARTERIES OF BOTH LOWER EXTREMITIES WITH PVR EXAM Farooq Ennis MD CLINICAL INFORMATION: Peripheral vascular disease, claudication TECHNIQUE: Ankle pulse volume recordings, ankle pressure measurements and ankle brachial indices were obtained of the lower extremity arterial system bilaterally. The study was performed only at rest. COMPARISON: None FINDINGS: a) AT REST: RIGHT LE. The right ankle-brachial index is: 1.27 * >0.97-1.25 = normal - no significant arterial disease * 0.75-0.96 = mild peripheral arterial disease * 0.5-0.74 = moderate peripheral arterial disease * <0.50 = severe peripheral arterial disease 2. Right ankle pressure: PT 205 DP 160. 3. Right ankle PVR waveform: normal. LEFT LE. The left ankle-brachial index is: 1.31 * >0.97-1.25 = normal - no significant arterial disease * 0.75-0.96 = mild peripheral arterial disease * 0.5-0.74 = moderate peripheral arterial disease * <0.50 = severe peripheral arterial disease 2. Left ankle pressure: PT 212 DP 212. 3. Left ankle PVR waveform: normal. US/US IGNACIA complete IMPRESSION: Supranormal bilateral ankle brachial indices. Pulse volume waveforms are within normal limits
== END 2022-04-19 13:35 | disposition home or self-care (01) ==
LOC: HO.US 13:34
PROVIDERS: Visit Provider Registered Nurse
DX: I73.9 Peripheral vascular disease, unspecified (principal)
CPT/HCPCS: 93923

== ENCOUNTER → 2022-05-19 10:22 | Outpatient (BNVA) | payer OTHER, SELFPAY | PROVIDERS: PCP Registered Nurse; Visit Provider Surgery Vascular Surgery | DX: I73.9 Peripheral vascular disease, unspecified (principal) | CPT/HCPCS: 99202 ==

== ENCOUNTER 2022-06-20 10:00 | Outpatient (RCR) | payer OTHER, SELFPAY | END 2022-06-21 14:38 | disposition home or self-care (01) | LOC: HO.PT 10:00 | PROVIDERS: Visit Provider Registered Nurse | DX: M48.02 Spinal stenosis, cervical region (principal) | CPT/HCPCS: 97110; 97140; 97162; 97164 ==

== ENCOUNTER → 2022-09-22 07:54 | Outpatient (REF) | payer OTHER, SELFPAY ==
--- NOTE | 2022-09-22 07:55 | CA_ITS ---
Transthoracic Echocardiogram Patient (Last, First, Middle): Casey Castrejon B Gender: Male Date of : 1955 Age: 67 Procedure Date: 09/22/2022 Procedure Type: Transthoracic Echocardiogram Location: OP Height: 182.88 cm Weight: 90.72 kg BSA: 2.13 m2 Heart Rate: 72 bpm BP: 132 / 78 mmHg Per Diem Clerk: SB Referring MD: Gilbert Sommers MD Symptoms: I77.810 - Thoracic aortic ectasia Study Quality: Technically Difficult/Unable to obtain IV access ECG Rhythm: Sinus Conclusions: - The left ventricular systolic function is mildly decreased. The calculated ejection fraction is 49% by biplane method. - No obvious valvular pathology seen on this study. - There is mild dilatation of the ascending aorta measuring 4.20 cm. Findings Left Ventricle Normal left ventricular cavity size. The left ventricular systolic function is mildly decreased. The calculated ejection fraction is 49% by biplane method. Regional wall motion abnormalities can not be excluded due to suboptimal endocardial definition. There is mild global hypokinesis. Evidence suggests grade I (mild) diastolic dysfunction. There is mild septal asymmetric hypertrophy. Right Ventricle Normal right ventricular cavity size. There is mildly decreased right ventricular systolic function. Atria Both atria are normal in size. Aortic Valve There is a normal trileaflet aortic valve. There is no aortic valve stenosis. There is no aortic valve regurgitation. Mitral Valve The mitral valve appears normal. There is trace mitral valve regurgitation. There is no mitral valve stenosis. Pulmonic Valve The pulmonic valve is likely normal. Tricuspid Valve There is no tricuspid valve regurgitation. Tricuspid regurgitation envelope is inadequate for calculation of right ventricular systolic pressure. Great Vessels The aortic arch is normal in size. There is mild dilatation of the ascending aorta measuring 4.20 cm. Venous The inferior vena cava was not well visualized. Pericardium/Pleural There is no evidence of pericardial effusion. Prior Study Comparison Changes noted compared to prior study dated: 09/23/2021. LVEF slightly lower, but this is non-contrast study due to IV access issues. Recommendations, Care & Conclusions No obvious valvular pathology seen on this study. Measurements 2D Linear Measurements IVSd: 1.20 0.6-0.9/0.6-1.0 cm LVIDd: 5.01 3.9-5.3/4.2-5.9 cm LVIDd Index: 2.35 2.4-3.2/2.2-3.1 cm/m2 LVIDs: 4.43 2.0-3.6 cm LVPWd: 0.73 0.7-1.1 cm LA Diam: 3.50 2.7-3.8/3.0-4.0 cm LAIDs Index: 1.64 1.5-2.3 cm/m2 LV Mass: 216.69 67-162/88-224 g LV Mass Index: 101.73 43-95/49-115 g/m2 LVOT Diam: 2.10 3.0+(-)1.3 cm 2D Systolic Function EF 4C: 54.40 >55% EF 2C: 46.70 >55% EF BiP: 49.10 >55% Mitral Valve MV Pk E: 0.51 MV PK A: 0.73 MV Decel Time: 213.00 E/A: 0.70 E'Lateral: 5.66 E'Medial: 3.48 E/E' Med: 14.50 E/E' Lat: 8.90 PHT: 62.00 MVA PHT: 3.55 Decel Sharkey: 2.37 Aortic Valve AoV Pk Franklin: 0.83 AoV Pk Grad: 3.00 GOLDIE: 2.64 LVOT LVOT Pk [place]: 0.66 LVOT Mn [place]: 0.42 LVOT VTI: 0.13 LVOT Pk Grad: 2.00 LVOT Mn Grad: 1.00 LVOT Diam: 2.10 LVOT Area: 3.46 Diastolic Function MV Pk E: 0.51 MV Pk A: 0.73 E/A: 0.70 E'Medial: 3.48 E/E' Med: 14.50 E' Laterial: 5.66 E/E' Lat: 8.90 Right Ventricle TAPSE (mm): 14.10 TVS' Franklin: 8.16 Great Vessels Aorta Sinus of Valsalva: 3.60 2.0-3.5 cm Ao Asc: 4.20 2.1-3.4 cm Ao Arch: 3.60 Pulmonary Valve PV Pk Franklin: 0.72 Peak PV Grad: 2.00 Updated in Other Vendor System with Status of Final Gilbert Sommers MD electronically signed on 09/24/2022 11:39:54 AM with status of Final
== END ==
LOC: HO.CARD 07:54
PROVIDERS: PCP Registered Nurse; Visit Provider Internal Medicine
DX: I77.810 Thoracic aortic ectasia (principal)
CPT/HCPCS: 93306

== ENCOUNTER → 2022-09-22 07:55 | Outpatient (BNV) | payer OTHER, SELFPAY | PROVIDERS: PCP Registered Nurse; Visit Provider Internal Medicine | DX: I25.10 Atherosclerotic heart disease of native coronary artery without angina pectoris (principal) | CPT/HCPCS: 93306 ==

== ENCOUNTER 2022-10-12 14:47 | Outpatient (AMB) | payer OTHER, SELFPAY ==
--- NOTE | 2022-10-12 14:57 | MHC.OFFVIS ---
Intake Vital Signs 10/12/22 14:59 Height 6 ft Weight 194 lb 14.218 oz BMI 26.4 BP 112/60 Blood Pressure Location Lt brachial Position Sitting Pulse 75 Intake Visit Reasons: 1 year follow up Intake Note: 1 year follow up w/ EKG Footwear Stitcher Required: No Accompanied by: Self / Same As Patient Allergies mirtazapine [From REMERON] Allergy (Intermediate, Verified 10/12/22 14:59) NAUSEA phenytoin Allergy (Unknown, Verified 10/12/22 14:59) NAUSEA/VOMITING STOMACH UPSET Medication List - Last Reconciled 10/12/22 by Gilbert Sommers MD albuterol sulfate 90 mcg/actuation 2 puffs inhalation QID PRN aspirin 81 mg PO DAILY atorvastatin 80 mg PO DAILY benzonatate (Tessalon Perles) 100 mg PO TID PRN calcium citrate-vitamin D3 200 mg-6.25 mcg (250 unit) 0 tabs PO carvedilol 6.25 mg PO BID cyanocobalamin (vitamin B-12) 0 mcg PO cyanocobalamin (vitamin B-12) 0 mcg sublingual fluoxetine 20 mg PO DAILY folic acid 1 mg PO DAILY gabapentin 300 mg PO TID lisinopril 5 mg PO DAILY metformin ER 500 mg PO DAILY multivitamin 1 tab PO DAILY nitroglycerin 0.4 mg sublingual Q5M PRN omeprazole 20 mg PO DAILY secukinumab mg subcut Q4W thiamine HCl (vitamin B1) (Vitamin B-1) 100 mg PO DAILY umeclidinium 62.5 mcg/actuation 0 inhalations inhalation HPI HPI Comments History of Present Illness Details Casey is here for follow-up regarding coronary disease. In the past, he has had hospitalization for chest pains thought to be atypical for angina. Subsequently, underwent noninvasive workup including echocardiogram, stress test and coronary CTA. He states he feels fine. He does not have any anginal-type symptoms or in fact any type of chest pain. Denies any other cardiac complaints. He states he is doing very well. [facility] Medical History Ascending aorta dilatation Atherosclerotic cardiovascular disease Diabetes Essential hypertension Gout Osteoarthritis Surgical History No pertinent past surgical history Family History Family/Other No problems noted. Mother NSTEMI (non-ST elevated myocardial infarction) CVD (cardiovascular disease) Brother CVD (cardiovascular disease) NSTEMI (non-ST elevated myocardial infarction) Sister CVD (cardiovascular disease) NSTEMI (non-ST elevated myocardial infarction) Social History Alcohol intake: current Alcohol intake frequency: 3 or more drinks per day Alcohol type: beer Patient Tobacco Use Status: Never used Tobacco Review of Systems Const Denies weakness ENT Denies dizziness Card Denies chest pain, Denies chest pain with activity, Denies syncope, Denies rapid heart rate, Denies pedal edema, Denies edema, Denies leg edema, Denies lightheadedness, Denies palpitations, Denies dyspnea, Denies dyspnea on exertion and Denies orthopnea Resp Denies cough, Denies dyspnea and Denies dyspnea on exertion GI Denies hematochezia and Denies change in stool character Musc Denies abnormal gait, Denies muscle cramps, Denies muscle weakness, Denies numbness, Denies radiating pain into limb and Denies tingling Neuro Denies abnormal gait, Denies dizziness, Denies syncope, Denies numbness, Denies tingling and Denies weakness Endo Denies palpitations Physical Exam Vital Signs: Last Vital Signs Pulse 75 10/12/22 14:59 BP 112/60 10/12/22 14:59 BMI result Body Mass Index 26.4 Const General: comfortable and no acute distress Orientation/consciousness: patient oriented x3 HEENT Other: Unremarkable Head: Yes normal to inspection Neck Neck: Yes normal visual inspection Chest Chest palpation & inspection: normal inspection of the chest Resp Auscultation: clear to auscultation bilaterally Cardio Palpation: normal PMI Heart sounds: S1 normal heart sound present, S2 normal heart sound present, no gallops, no murmurs and no rubs GI Palpation (GI): Soft to palpation Back/Spine/Pelvis Other: unremarkable Skin General skin exam: no rashes or lesions noted Neuro General: patient oriented x3 Extrem General: Yes normal to inspection Psych Mental Status: mental status grossly normal Office Procedures EKG Details: EKG with sinus rhythm at 75/Min; no significant ST-T changes; normal AL and corrected QT. Occasional PVC. [id number], Complete Assessment & Plan Assessment & Plan (1) Atherosclerotic cardiovascular disease: Code(s): I25.10 - Atherosclerotic heart disease of [place] coronary artery without angina pectoris Plan: Coronary CTA 2019- [id number] atherosclerotic disease without any obstructive lesions. He has got absolutely no cardiac symptoms. Hence we will continue to monitor. Continue Aspirin. Continue statins. LDL is 72mg/dl. (2) Cardiomyopathy: Code(s): I42.9 - Cardiomyopathy, unspecified Plan: In the recent echocardiogram, LVEF is 49%. This is less than last time. Etiology unclear. He has had off and on high blood pressures and not clear if that plays a role. He has absolutely no symptoms from this. We will continue to monitor. Repeat echocardiogram before next visit. (3) Essential hypertension: Code(s): I10 - Essential (primary) hypertension Plan: Blood pressure seems okay. They have been high before but he states is being monitored bed he lives and mostly within range. (4) Ascending aorta dilatation: Code(s): I77.810 - Thoracic aortic ectasia Plan: Ascending aortic size 4.2 cm. Stable. Orders: Orders CA echo transthoracic complete 51 Weeks I25.10 - Atherosclerotic heart disease of [place] coronary artery without angina pectoris, I42.9 - Cardiomyopathy, unspecified, I77.810 - Thoracic aortic ectasia Coding Level of Care Code Est Pt Level 4 (84229) Diagnoses Atherosclerotic cardiovascular disease I25.10 Cardiomyopathy I42.9 Essential hypertension I10 Ascending aorta dilatation I77.810 CPT Codes EKG - CPT: 00073-[id number], Complete ([id number])
[2022-10-12 14:59] VITALS: BP 112/60; PULSE 75; BMI 26.4
== END 2022-10-12 15:14 | disposition home or self-care (01) ==
PROVIDERS: PCP Registered Nurse; Visit Provider Internal Medicine
DX: I25.10 Atherosclerotic heart disease of native coronary artery without angina pectoris (principal); I42.9 Cardiomyopathy, unspecified; I10 Essential (primary) hypertension; I77.810 Thoracic aortic ectasia
CPT/HCPCS: 93010; 99214

== ENCOUNTER → 2022-10-12 14:47 | Outpatient (BNVA) | payer OTHER, SELFPAY | PROVIDERS: PCP Registered Nurse; Visit Provider Internal Medicine | DX: I25.10 Atherosclerotic heart disease of native coronary artery without angina pectoris (principal); I42.9 Cardiomyopathy, unspecified; I10 Essential (primary) hypertension; I77.810 Thoracic aortic ectasia | CPT/HCPCS: 93005; 99212 ==

== ENCOUNTER 2022-10-26 08:33 | Outpatient (REF) | payer OTHER, SELFPAY ==
--- NOTE | ~2022-10-26 | US_ITS ---
EXAMINATION: NONINVASIVE ASSESSMENT OF THE ARTERIES OF BOTH LOWER EXTREMITIES INCLUDING PVR EXAM AND BILATERAL LOWER EXTREMITY DUPLEX CLINICAL INFORMATION: Peripheral vascular disease, unspecified. COMPARISON: None TECHNIQUE: Ankle pulse volume recordings, ankle pressure measurements and ankle brachial indices were obtained of the lower extremity arterial system bilaterally in addition to duplex Doppler techniques with wave form analysis and measurement of velocities in the common femoral, profunda femoral, superficial femoral, popliteal, tibial and peroneal arteries. The study was performed only at rest. FINDINGS: RIGHT LEG 1. Right Ankle-Brachial Index: 1.34 (higher of the DP/PT) >0.97-1.25 = normal - no significant arterial disease 0.75-0.96 = mild peripheral arterial disease 0.5-0.74 = moderate peripheral arterial disease <0.50 = severe peripheral arterial disease <0.30 = critical arterial disease 2. Segmental Pressures (mmHg): Brachial: 143 Ankle: PT 202, DP 202 3. PVR Waveforms: Ankle: Low amplitude, no dicrotic notch 4. Direct Duplex: Common femoral artery: 76.4 cm/s, Multiphasic Profunda femoris artery: 42.6 cm/s, Multiphasic Superficial femoral artery (proximal): 61.1 cm/s, Multiphasic Superficial femoral artery (mid): 54.7 cm/s, Multiphasic Superficial femoral artery (distal): 50.7 cm/s, Multiphasic Proximal Popliteal artery: 48 cm/s, Multiphasic Distal popliteal artery: 41.9 cm/s, Multiphasic Mid posterior tibial artery: 27.1 cm/s, Multiphasic Distal posterior tibial artery: 13.9 cm/s, monophasic Anterior tibial artery: 15.8 cm/s, monophasic Dorsalis pedis: 38.7 cm/s, monophasic Peroneal artery: Poorly visualized, obscured by shadowing from the posterior tibial artery There is a collateral vessel at the midportion of the superficial femoral artery. Peak systolic velocity is 26.4 cm/s. Waveform is multiphasic. LEFT LE. Left Ankle-Brachial Index: 1.38 (higher of the DP/PT) >0.97-1.25 = normal - no significant arterial disease 0.75-0.96 = mild peripheral arterial disease 0.5-0.74 = moderate peripheral arterial disease <0.50 = severe peripheral arterial disease <0.30 = critical arterial disease 2. Segmental Pressures: Brachial: 151 Ankle: PT 208, DP 206 3. PVR Waveforms: Ankle: Low amplitude, no dicrotic notch 4. Direct Duplex: Common femoral artery: 65.4 cm/s, Multiphasic Profunda femoris artery: 34.9 cm/s, Multiphasic Superficial femoral artery (proximal): 63.8 cm/s, Multiphasic Superficial femoral artery (mid): 59.2 cm/s, Multiphasic Superficial femoral artery (distal): 53.9 cm/s, Multiphasic Proximal Popliteal artery: 34.9 cm/s, Multiphasic Distal popliteal artery: 38.6 cm/s, Multiphasic Proximal posterior tibial artery: 19.4 cm/s, monophasic Mid posterior tibial artery: 53.6 cm/s, Multiphasic Distal posterior tibial artery: 64.3 cm/s, monophasic Peroneal artery: Heavily calcified. No Doppler signal is visualized. Uncertain if occluded versus obscured by calcification. Anterior tibial artery: 45.5 cm/s, multiphasic Dorsalis pedis: 46.6 cm/s, multiphasic There is a collateral vessel at the midportion of the superficial femoral artery. Peak systolic velocity is 39 cm/s. Waveform is multiphasic. US/US arterial duplex LE BI IMPRESSION: IGNACIA is 1.34 on the right and 1.38 on the left. Likely falsely elevated secondary to poorly compressible vessels. There is loss of dicrotic notch on PVR waveforms bilaterally. On the right there are monophasic waveforms within the anterior tibial artery and distal posterior tibial arteries suggesting distal runoff disease. On the left there are monophasic waveforms within the posterior tibial artery and no flow within the peroneal.
== END 2022-10-26 08:34 | disposition home or self-care (01) ==
LOC: HO.US 08:33
PROVIDERS: PCP Registered Nurse; Visit Provider Surgery Vascular Surgery
DX: I70.213 Atherosclerosis of native arteries of extremities with intermittent claudication, bilateral legs (principal)
CPT/HCPCS: 93923; 93925

== ENCOUNTER 2023-08-07 16:19 | Emergency (ER) | payer OTHER, SELFPAY ==
--- NOTE | ~2023-08-07 | XR_ITS ---
EXAMINATION: XR KNEE, RIGHT CLINICAL INFORMATION: Right knee pain COMPARISON: None available. TECHNIQUE: Four views of the right knee. FINDINGS: No fracture or joint effusion. Alignment is anatomic. Joint spaces are maintained. No abnormal soft tissue calcification. XR/XR knee RT 3V IMPRESSION: Normal right knee.
--- NOTE | ~2023-08-07 | CT_ITS ---
EXAMINATION: CT HEAD W/O IV CONTRAST CT CERVICAL SPINE W/O IV CONTRAST CLINICAL INFORMATION: 68-year-old male with history of fall while intoxicated. COMPARISON: 07/28/2021 TECHNIQUE: Head - Contiguous axial imaging of the head was performed from the skull base to the vertex without the administration of intravenous contrast, and axial images are reconstructed at 2 mm and 5 mm slice thickness. Cervical spine - A volumetric, helical CT acquisition of the cervical spine was obtained without contrast; in addition to the standard set of axial images, multiplanar reformatted images were provided in the coronal and sagittal imaging planes. This CT examination was performed using dose optimization techniques as appropriate, variously including the following: *Automated exposure control *Adjustment of mA and/or kV according to patient size (this includes techniques or standardized protocols for targeted exams where dose is matched to indication/reason for exam; i.e. extremities or head) *Use of iterative reconstruction technique DLP: 1320 mGy-cm (total) FINDINGS: HEAD: No evidence of intracranial hemorrhage, extra-axial surface collection, focal mass effect or midline shift. Mild parenchymal volume loss with commensurate prominence of ventricles and sulci. No hydrocephalus. There is atherosclerotic calcification of the vertebral and cavernous carotid arteries. The chronic patchy hypoattenuation within supratentorial matter is compatible with sequela of moderate microangiopathy. No evidence of an acute major vascular territory infarction. No calvarial fracture. No air-fluid levels within paranasal sinuses. The mastoid air cells are well aerated. No fracture or malalignment at either temporomandibular joint. The orbits are intact. CERVICAL SPINE: Chronic dextroscoliosis of the degenerated cervical spine. The craniocervical junction is normal. The occipital condyles, dens and atlantodental articulation are intact. The vertebral body heights are maintained. No fractures in the anterior or posterior elements. No prevertebral edema or soft tissue hematoma. The facet arthropathy of the cervical spine is worst on the left at C3-C4 and C4-C5. The disc degenerative changes are chronically worst at C5-C6 and C6-C7. Chronic minimal anterolisthesis at C3-C4 and C4-C5, minimal degenerative retrolisthesis at C5-C6 and approximately 0.2 cm of degenerative anterolisthesis at C7-T1. Posterior disc-osteophyte complexes appear to cause mild spinal canal stenosis at C5-C6 and C6-C7. Thyroid gland is atrophied. No acute findings within the lung apices. CT/CT cervical spine wo IV con IMPRESSION: * No intracranial hemorrhage or other acute intracranial pathology. * Patchy hypoattenuation within supratentorial white matter is compatible with sequela of chronic microangiopathy (i.e., leukoaraiosis). * No fracture or traumatic subluxation in the chronically degenerated, dextroscoliotic cervical spine.
[2023-08-07 16:26] VITALS: BP 138/94; PULSE 78; O2SAT 97
[2023-08-07 16:30] VITALS: BP 117/78; PULSE 75; RESP 19; TEMP 36.7; O2SAT 96; BMI 28.5
[2023-08-07 16:42] VITALS: BP 117/78; PULSE 78; RESP 19; TEMP 36.7; O2SAT 96
--- NOTE | 2023-08-07 17:19 | ED_ITS ---
HPI - Fall General Chief Complaint: Fall Stated Complaint: FALL ETOH + COLLAR Time Seen by Provider: 08/07/23 16:29 Source: patient Mode of arrival: EMS History of Present Illness ED Provider: Dr. Garner HPI Narrative: 68-year-old male, everyday drinker, endorses a 4-5 alcoholic beverages today, states that he was walking home and typically uses a cane but lost it and said that his right knee gave out and he landed on his knees, denies any head strike or loss of consciousness. He denies any use of blood thinners. Related Data Home Medications ?Medication ?Instructions ?Recorded ?Confirmed aspirin 81 mg tablet,delayed 81 mg PO DAILY 03/25/20 10/12/22 release calcium citrate 200 mg 0 tab PO 03/25/20 10/12/22 calcium-vitamin D3 6.25 mcg (250 unit) tablet carvedilol 6.25 mg tablet 6.25 mg PO BID 03/25/20 10/12/22 fluoxetine 20 mg capsule 20 mg PO DAILY 03/25/20 10/12/22 folic acid 1 mg tablet 1 mg PO DAILY 03/25/20 10/12/22 gabapentin 300 mg capsule 300 mg PO TID 03/25/20 10/12/22 metformin 500 mg tablet,extended 500 mg PO DAILY 03/25/20 10/12/22 release 24 hr multivitamin 1 tab PO DAILY 03/25/20 10/12/22 nitroglycerin 0.4 mg sublingual 0.4 mg sublingual Q5M PRN 03/25/20 10/12/22 tablet omeprazole 20 mg capsule,delayed 20 mg PO DAILY 03/25/20 10/12/22 release secukinumab 150 mg/mL subcutaneous mg subcut Q4W 03/25/20 10/12/22 pen injector umeclidinium 62.5 mcg/actuation 0 inh inhalation 03/25/20 10/12/22 blister powder for inhalation cyanocobalamin (vitamin B-12) 250 0 mcg PO 05/19/22 10/12/22 mcg tablet cyanocobalamin (vitamin B-12) 500 0 mcg sublingual 05/19/22 10/12/22 mcg disintegrating tablet,sublingual lisinopril 5 mg tablet 5 mg PO DAILY 05/19/22 10/12/22 thiamine HCl (vitamin B1) 100 mg 100 mg PO DAILY 05/19/22 10/12/22 tablet (Vitamin B-1) Previous Rx's ?Medication ?Instructions ?Recorded albuterol sulfate 90 mcg/actuation 2 puff inhalation QID PRN 12/03/20 aerosol inhaler shortness of breath or wheezing #8.5 grams benzonatate 100 mg capsule 100 mg PO TID PRN cough #15 caps 12/03/20 (Tesliseth Molina) atorvastatin 80 mg tablet 80 mg PO DAILY 90 days #90 tabs 05/22/23 Allergies Allergy/AdvReac Type Severity Reaction Status Date / Time mirtazapine [From REMERON] Allergy Intermediate NAUSEA Verified 08/07/23 16:38 phenytoin Allergy Unknown NAUSEA/VOMITING Verified 08/07/23 16:38 STOMACH UPSET Review of Systems Review of Systems: PERTINENT POSITIVES AND NEGATIVES STATED IN [facility] Past Medical History Source: nursing notes reviewed Medical History Osteoarthritis Gout Diabetes Essential hypertension Atherosclerotic cardiovascular disease Ascending aorta dilatation Surgical History No pertinent past surgical history Family History Family History Family/Other No problems noted. Mother NSTEMI (non-ST elevated myocardial infarction) CVD (cardiovascular disease) Brother CVD (cardiovascular disease) NSTEMI (non-ST elevated myocardial infarction) Sister CVD (cardiovascular disease) NSTEMI (non-ST elevated myocardial infarction) Social History Social History Alcohol intake: current Alcohol intake frequency: 3 or more drinks per day Alcohol type: beer Patient Tobacco Use Status: Never used Tobacco Smoked in Last 30 Days: No Advance Directives: No Advance Directives Information Provided: No Physical Exam Vital Signs: Vital Signs: Last Vital Signs Temp 98.0 F 08/07/23 16:42 Pulse 78 08/07/23 16:42 Resp 19 08/07/23 16:42 BP 117/78 08/07/23 16:42 Pulse Ox 96 08/07/23 16:42 O2 Del Method Room Air 08/07/23 16:42 BMI result Body Mass Index 28.5 VITAL SIGNS: Reviewed. GENERAL: Well developed, well nourished, in no acute distress. HEAD: Normocephalic/atraumatic EYES: PERRLA, EOMI EARS: Ext canals without abnormality NOSE: Nares patent bilateral OROPHARYNX: no oral lesions noted, posterior pharynx clear NECK: C-collar in place without midline cervical spine tenderness to palpation or step-offs noted LUNGS: Normal breath sounds. No adventitious sounds or accessory muscle use. SpO2<96> CARDIOVASCULAR: Regular rate and rhythm without noted murmurs, no JVD or lower extremity edema. ABDOMEN: Soft, non-tender, non-distended with bowel sounds. PELVIS: Stable, nontender MUSCULOSKELETAL: No tenderness, deformities, or effusions noted on gross inspection. EXTREMITIES: No cyanosis, clubbing or edema. BILATERAL KNEE: Superficial abrasions SKIN: Inspection of the skin reveals no rashes NEUROLOGIC: Alert and oriented x 4. Strength and sensation to light touch were grossly intact x 4. Medications Administered Discontinued Medications Generic Name Dose Route Start Last Admin Trade Name Freq PRN Reason Stop Dose Admin Acetaminophen 975 mg 08/07/23 19:25 08/07/23 19:28 Acetaminophen 325 Mg Tablet PO 08/07/23 19:26 975 mg ONCE ONE Administration Ibuprofen 400 mg 08/07/23 19:25 08/07/23 19:29 Ibuprofen 400 Mg Tablet PO 08/07/23 19:26 400 mg ONCE ONE Administration Medical Decision Making Medical Decision Making MDM Narrative: 68-year-old male with history and clinical presentation, DDX: Rule out intracranial hemorrhage or mass effect, rule out cervical spine etiologies, patient is otherwise nonfocal and no evidence infections. I reviewed imaging studies which are negative for intracranial hemorrhage/mass effect and no evidence of fracture or subluxation on cervical CT. C-collar was removed and awaiting x-ray of knee. 184: I reviewed the x-ray results which are negative for acute findings. Will ambulate the patient and evaluate for stability and then discharge. 1930: Patient ambulates with a steady gait, he was provided with combination analgesics and an Sawyer wrap to the right knee and discharge back to the assisted living. Differential Diagnosis Differential Diagnoses: The differential diagnosis associated with the presentation includes Please see the discussion Admission/Observation Consideration of admission/observation: Escalation of care including admission/observation considered Please see the discussion above Radiology Impression Discussion of test interpretation with radiology: I have reviewed the radiologist's reading. Radiologist Impression: Please see the discussion above External Record Review External record reviewed: Outpatient record and Prior outpatient labs Social Determinants Patient?s care significantly limited by Social Determinants of Health including: Alcoholism and drug addiction in family Critical Care Time Critical Care Time Critical Care Time: Yes Total Critical Care Time: 30 Attestation: I personally attest to this time spent taking care of the patient. Discharge Plan Discharge Clinical Impression: Fall, Superficial abrasion, Alcohol use disorder Patient Disposition: Home, Self-Care Instructions: Fall Prevention for Older Adults (ED) Additional Instructions: Resume all home medications as prescribed. Return to the ER for any worsening of symptoms. Prescriptions: No Action atorvastatin 80 mg tablet 80 mg PO DAILY 90 Days Qty: 90 3RF albuterol sulfate 90 mcg/actuation HFA aerosol inhaler 2 puff inhalation QID PRN (Reason: shortness of breath or wheezing) Qty: 8.5 0RF benzonatate [Tessalon Perles] 100 mg capsule 100 mg PO TID PRN (Reason: cough) Qty: 15 0RF Cosentyx Pen (2 Pens) 150 mg/mL pen injector subcut Q4W calcium citrate-vitamin D3 200 mg-6.25 mcg (250 unit) tablet 0 tab PO metformin 500 mg tablet extended release 24 hr 500 mg PO DAILY fluoxetine 20 mg capsule 20 mg PO DAILY folic acid 1 mg tablet 1 mg PO DAILY omeprazole 20 mg capsule,delayed release(DR/EC) 20 mg PO DAILY gabapentin 300 mg capsule 300 mg PO TID aspirin 81 mg tablet,delayed release (DR/EC) 81 mg PO DAILY carvedilol 6.25 mg tablet 6.25 mg PO BID multivitamin Tablet 1 tab PO DAILY Incruse Ellipta 62.5 mcg/actuation blister with device 0 inh inhalation nitroglycerin 0.4 mg tablet, sublingual 0.4 mg sublingual Q5M PRN Rx Instructions: do not exceed 3 doses per episode lisinopril 5 mg tablet 5 mg PO DAILY cyanocobalamin (vitamin B-12) 250 mcg tablet 0 mcg PO thiamine HCl (vitamin B1) [Vitamin B-1] 100 mg tablet 100 mg PO DAILY cyanocobalamin (vitamin B-12) 500 mcg tablet,disintegrating 0 mcg sublingual Print Language: Khmer
--- NOTE | 2023-08-07 19:24 | PC.NURSE ---
Pt able to ambulate to BR with slow steady gait. Pt reports right knee pain/throbbing.
[2023-08-07] MEDS: Acetaminophen 325 MG TABLET 975 MG PO (19:28)
[2023-08-07] MEDS: Ibuprofen 400 MG TABLET PO (19:29)
--- NOTE | 2023-08-07 21:41 | PC.NURSE ---
patient discharged via EMS due to being a fall risk. Assisted patient to EMS stretcher, belongings went back with patient. Patient verbalized understanding of discharge instructions.
== END 2023-08-07 21:42 | disposition home or self-care (01) ==
PROVIDERS: Emergency Provider Student in an Organized Health Care Education/Training Program
DX: S80.211A Abrasion, right knee, initial encounter (principal); R51.9 Headache, unspecified; M25.561 Pain in right knee; M54.2 Cervicalgia; F10.129 Alcohol abuse with intoxication, unspecified; Y90.8 Blood alcohol level of 240 mg/100 ml or more; W01.10XA Fall on same level from slipping, tripping and stumbling with subsequent striking against unspecified object, initial encounter; Y92.9 Unspecified place or not applicable; Y99.8 Other external cause status; Z79.899 Other long term (current) drug therapy
CPT/HCPCS: 70450; 72125; 73562; 99284

== ENCOUNTER → 2023-09-26 09:41 | Outpatient (REF) | payer OTHER, SELFPAY ==
--- NOTE | 2023-09-26 09:47 | CA_ITS ---
Transthoracic Echocardiogram Patient (Last, First, Middle): Casey Castrejon B Gender: Male Date of : 1955 Age: 68 Procedure Date: 09/26/2023 Procedure Type: Transthoracic Echocardiogram Location: OP Height: 182.88 cm Weight: 88.45 kg BSA: 2.11 m2 Heart Rate: 73 bpm BP: 128 / 73 mmHg Solaris Administrator: SB Referring MD: Gilbert Sommers MD Acrylic Fabricator: Nic Mendoza MD Symptoms: I42.9 - Cardiomyopathy, unspecified Study Quality: Fair ECG Rhythm: Sinus Conclusions: - 1. Technically difficult study 2. Mildly reduced LV EF of 45-50% with impaired relaxation pattern 3. Cardiac valvular Dopplers within normal limits 4. Mildly dilated ascending aorta at 4.1 cm Findings Procedure Information The quality of the study was technically difficult. The study quality is limited by lung artifact. Left Ventricle Normal left ventricular cavity size. There is normal left ventricular wall thickness. The left ventricular systolic function is mildly decreased. The visually estimated ejection fraction is between 45-50%. Regional wall motion abnormalities can not be excluded due to suboptimal endocardial definition. Spectral Doppler is indicative of an impaired relaxation filling pattern. E/E prime ratio is between 8 and 15 consistent with indeterminate filling pressures. Wall Motion Rest Echo Findings The basal inferior segment is akinetic. Right Ventricle The right ventricle was not well visualized. Atria The left atrium was not well visualized. Interatrial shunt cannot be excluded. The right atrium was not well visualized. Aortic Valve The aortic valve was not well visualized. There is mild calcification of the aortic valve. There is no aortic valve stenosis. There is no aortic valve regurgitation. Mitral Valve The mitral valve was not well visualized. There is no mitral valve regurgitation. There is no mitral valve stenosis. Pulmonic Valve The pulmonic valve was not well visualized. Tricuspid Valve The tricuspid valve was not well visualized. Tricuspid regurgitation envelope is inadequate for calculation of right ventricular systolic pressure. Indeterminate right atrial pressure. Great Vessels The pulmonary artery was not well visualized. There is mild dilatation of the ascending aorta measuring 4.10 cm. Small plaque is seen in the sino tubular ridge. Venous The inferior vena cava was not well visualized. Pericardium/Pleural The pericardium was not well visualized. Prior Study Comparison No significant change compared to prior study dated: 09/22/2022. Measurements 2D Linear Measurements IVSd: 0.82 0.6-0.9/0.6-1.0 cm LVIDd: 5.22 3.9-5.3/4.2-5.9 cm LVIDd Index: 2.47 2.4-3.2/2.2-3.1 cm/m2 LVPWd: 0.62 0.7-1.1 cm LA Diam: 3.40 2.7-3.8/3.0-4.0 cm LAIDs Index: 1.61 1.5-2.3 cm/m2 LV Mass: 159.99 67-162/88-224 g LV Mass Index: 75.83 43-95/49-115 g/m2 LVOT Diam: 2.50 3.0+(-)1.3 cm 2D Systolic Function EF 4C: 46.00 >55% EF 2C: 48.40 >55% EF BiP: 45.30 >55% Mitral Valve MV Pk E: 0.48 MV PK A: 0.72 MV Decel Time: 290.00 E/A: 0.70 E'Lateral: 5.55 E'Medial: 3.37 E/E' Med: 14.10 E/E' Lat: 8.60 PHT: 85.00 MVA PHT: 2.59 Decel [place]: 1.64 Aortic Valve AoV Pk Franklin: 0.92 AoV Pk Grad: 3.00 GOLDIE: 3.70 LVOT LVOT Pk Franklin: 0.69 LVOT Mn Franklin: 0.49 LVOT VTI: 0.14 LVOT Pk Grad: 2.00 LVOT Mn Grad: 1.00 LVOT Diam: 2.50 LVOT Area: 4.91 Diastolic Function MV Pk E: 0.48 MV Pk A: 0.72 E/A: 0.70 E'Medial: 3.37 E/E' Med: 14.10 E' Laterial: 5.55 E/E' Lat: 8.60 Right Ventricle TAPSE (mm): 12.10 TVS' Franklin: 7.29 Great Vessels Aorta Sinus of Valsalva: 3.80 2.0-3.5 cm Ao Asc: 4.10 2.1-3.4 cm Ao Arch: 3.70 Pulmonary Valve PV Pk Franklin: 0.61 Peak PV Grad: 1.00 Updated in Other Vendor System with Status of Final Nic Reji MD electronically signed on 09/27/2023 2:21:04 PM with status of Final
== END ==
LOC: HO.CARD 09:41
PROVIDERS: Visit Provider Internal Medicine
DX: I42.9 Cardiomyopathy, unspecified (principal); I25.10 Atherosclerotic heart disease of native coronary artery without angina pectoris; I77.810 Thoracic aortic ectasia
CPT/HCPCS: 93306

== ENCOUNTER → 2023-09-26 09:47 | Outpatient (BNV) | payer OTHER, SELFPAY | PROVIDERS: Visit Provider Internal Medicine Cardiovascular Disease | DX: I35.8 Other nonrheumatic aortic valve disorders (principal); I42.9 Cardiomyopathy, unspecified | CPT/HCPCS: 93306 ==

== ENCOUNTER → 2023-10-10 13:41 | Outpatient (BNVA) | payer OTHER, SELFPAY | PROVIDERS: Visit Provider Internal Medicine | DX: I25.10 Atherosclerotic heart disease of native coronary artery without angina pectoris (principal); I10 Essential (primary) hypertension; I42.9 Cardiomyopathy, unspecified; I77.810 Thoracic aortic ectasia | CPT/HCPCS: 93005; 99212 ==

== ENCOUNTER 2023-10-10 13:42 | Outpatient (AMB) | payer OTHER, SELFPAY ==
[2023-10-10 13:44] VITALS: BP 124/70; PULSE 65; BMI 26.5
--- NOTE | 2023-10-10 13:44 | A.OFFVIS_ITS ---
Vital Signs 10/10/23 13:44 Height 6 ft Weight 195 lb 5.273 oz BMI 26.5 BP 124/70 Blood Pressure Location Lt brachial Position Sitting Pulse 65 Intake Visit Reasons: 1 yr f/up Funeral Planner Required: No Accompanied by: Self / Same As Patient Allergies mirtazapine [From [facility]] Allergy (Intermediate, Verified 08/07/23 16:38) NAUSEA phenytoin Allergy (Unknown, Verified 08/07/23 16:38) NAUSEA/VOMITING STOMACH UPSET Medication List - Last Reconciled 10/10/23 by Gilbert Sommers MD albuterol sulfate 90 mcg/actuation 2 puffs inhalation QID PRN aspirin 81 mg PO DAILY atorvastatin 80 mg PO DAILY 90 days benzonatate (Tessalon Perles) 100 mg PO TID PRN calcium citrate-vitamin D3 200 mg-6.25 mcg (250 unit) 0 tabs PO carvedilol 6.25 mg PO BID cyanocobalamin (vitamin B-12) 0 mcg PO fluoxetine 20 mg PO DAILY folic acid 1 mg PO DAILY gabapentin 300 mg PO TID lisinopril 5 mg PO DAILY metformin ER 500 mg PO DAILY multivitamin 1 tab PO DAILY nitroglycerin 0.4 mg sublingual Q5M PRN omeprazole 20 mg PO DAILY thiamine HCl (vitamin B1) (Vitamin B-1) 100 mg PO DAILY umeclidinium 62.5 mcg/actuation 0 inhalations inhalation HPI Comments Details: Casey is here for follow-up regarding coronary disease. In the past, he has had hospitalization for chest pains thought to be atypical for angina. Subsequently, underwent noninvasive workup including echocardiogram, stress test and coronary CTA. Overall, he states he is doing good. No complaints like chest pains or in fact anything cardiac sounding. He is getting along fine. [facility] Medical History Osteoarthritis Gout Diabetes Essential hypertension Atherosclerotic cardiovascular disease Ascending aorta dilatation Surgical History No pertinent past surgical history Family History Family/Other No problems noted. Mother NSTEMI (non-ST elevated myocardial infarction) CVD (cardiovascular disease) Brother CVD (cardiovascular disease) NSTEMI (non-ST elevated myocardial infarction) Sister CVD (cardiovascular disease) NSTEMI (non-ST elevated myocardial infarction) Social History Alcohol intake: current Alcohol intake frequency: 3 or more drinks per day Alcohol type: beer Patient Tobacco Use Status: Never used Tobacco Review of Systems Const Denies chills, Denies fatigue, Denies fever(s), Denies weight gain and Denies weight loss ENT Denies dizziness Card Denies chest pain, Denies leg edema, Denies lightheadedness, Denies palpitations, Denies dyspnea on exertion, Denies orthopnea and Denies other Resp Denies cough and Denies dyspnea on exertion GI Denies hematochezia and Denies change in stool character Musc Denies abnormal gait, Denies muscle weakness, Denies numbness, Denies radiating pain into limb and Denies tingling Neuro Denies abnormal gait, Denies dizziness, Denies numbness and Denies tingling Endo Denies fatigue and Denies palpitations Physical Exam Vital Signs: Last Vital Signs Pulse 65 10/10/23 13:44 BP 124/70 10/10/23 13:44 BMI result Body Mass Index 26.5 Const General: comfortable and no acute distress Orientation/consciousness: patient oriented x3 HEENT Other: Unremarkable Head: Yes normal to inspection Neck Neck: Yes normal visual inspection Chest Chest palpation & inspection: normal inspection of the chest Resp Auscultation: clear to auscultation bilaterally Cardio Palpation: normal PMI Heart sounds: S1 normal heart sound present, S2 normal heart sound present, no gallops, no murmurs and no rubs GI Palpation (GI): Soft to palpation Back/Spine/Pelvis Other: unremarkable Skin General skin exam: no rashes or lesions noted Neuro General: patient oriented x3 Extrem General: Yes normal to inspection Psych Mental Status: mental status grossly normal Office Procedures EKG Details: EKG with underlying sinus rhythm at 65/Min; no significant ST-T changes and otherwise unremarkable[place] [address]-Etgztyvgdgvrhexci, Complete Assessment & Plan Assessment & Plan (1) Atherosclerotic cardiovascular disease: Code(s): I25.10 - Atherosclerotic heart disease of [place] coronary artery without angina pectoris Category: Medical Plan: Coronary CTA 2019- yoie-bn-xztnbnhj atherosclerotic disease without any obstructive lesions. Clinically, no angina. Continue aspirin and statins. Last LDL from [facility] 76 mg/dL. Triglycerides 160 mg/dL. (2) Cardiomyopathy: Code(s): I42.9 - Cardiomyopathy, unspecified Category: Medical Plan: Recent echocardiogram with LVEF of 45-50%. Overall, similar to prior. No symptoms or signs of CHF. On carvedilol and lisinopril. (3) Essential hypertension: Code(s): I10 - Essential (primary) hypertension Category: Medical Plan: Stable. (4) Ascending aorta dilatation: Code(s): I77.810 - Thoracic aortic ectasia Category: Medical Plan: Ascending aortic size 4.1 cm. Stable. Can be followed on echocardiogram. Orders: Orders CA echo transthoracic complete 1 Year I77.810 - Thoracic aortic ectasia Coding Level of Care Code Est Pt Level 4 (89532) Diagnoses Atherosclerotic cardiovascular disease I25.10 Cardiomyopathy I42.9 Essential hypertension I10 Ascending aorta dilatation I77.810 CPT Codes EKG - CPT: 94544-Yparbobewriwhidyt, Complete ([id number])
== END 2023-10-10 14:13 | disposition home or self-care (01) ==
PROVIDERS: Visit Provider Internal Medicine
DX: I25.10 Atherosclerotic heart disease of native coronary artery without angina pectoris (principal); I42.9 Cardiomyopathy, unspecified; I10 Essential (primary) hypertension; I77.810 Thoracic aortic ectasia
CPT/HCPCS: 93010; 99214

== ENCOUNTER → 2024-10-09 07:43 | Outpatient (REF) | payer OTHER, SELFPAY ==
--- NOTE | 2024-10-09 07:56 | CA_ITS ---
Transthoracic Echocardiogram Patient (Last, First, Middle): Casey Castrejon B Gender: M Date of : 1955 Age: 69 Procedure Date: 10/09/2024 Procedure Type: Transthoracic Echocardiogram Location: OP Height: 172.72 cm Weight: 92.99 kg BSA: 2.07 m2 Heart Rate: bpm BP: 140 / 84 mmHg Machine Folder: TO Referring MD: Gilbert Sommers MD Sand Cleaning Machine Operator: Nic Mendoza MD Symptoms: I77.810 Thoracic aortic ectasia Study Quality: Technically Difficult/no iv access ECG Rhythm: Sinus Conclusions: - 1. Low normal LV ejection fraction of 50-55% with impaired relaxation filling pattern 2. Cardiac valvular Dopplers within normal limits 3. Mildly dilated ascending aorta at 4.1 cm Findings Left Ventricle The left ventricle was not well visualized. Normal left ventricular cavity size. The left ventricular systolic function is low normal. The visually estimated ejection fraction is between 50-55%. Spectral Doppler is indicative of an impaired relaxation filling pattern. E/E prime ratio is between 8 and 15 consistent with indeterminate filling pressures. Right Ventricle The right ventricle was not well visualized. Atria The left atrium is normal in size. The right atrium was not well visualized. Aortic Valve Normal aortic valve structure and function. There is no aortic valve stenosis. There is no aortic valve regurgitation. Mitral Valve The mitral valve was not well visualized. There is trace mitral valve regurgitation. There is no mitral valve stenosis. Pulmonic Valve The pulmonic valve was not well visualized. Tricuspid Valve The tricuspid valve was not well visualized. Tricuspid regurgitation envelope is inadequate for calculation of right ventricular systolic pressure. Great Vessels The pulmonary artery was not well visualized. There is mild dilatation of the ascending aorta measuring 4.10 cm. Small plaque is seen in the sino tubular ridge. Venous The inferior vena cava was not well visualized. Pericardium/Pleural The pericardium was not well visualized. Prior Study Comparison No significant change compared to prior study dated: 09/26/2023. Measurements 2D Linear Measurements IVSd: 0.95 0.6-0.9/0.6-1.0 cm LVIDd: 5.13 3.9-5.3/4.2-5.9 cm LVIDd Index: 2.48 2.4-3.2/2.2-3.1 cm/m2 LVIDs: 3.94 2.0-3.6 cm LVPWd: 0.76 0.7-1.1 cm LA Diam: 3.80 2.7-3.8/3.0-4.0 cm LAIDs Index: 1.84 1.5-2.3 cm/m2 LV Mass: 192.70 67-162/88-224 g LV Mass Index: 93.09 43-95/49-115 g/m2 LVOT Diam: 2.50 3.0+(-)1.3 cm Mitral Valve MV Pk E: 0.48 MV PK A: 0.77 MV Decel Time: 218.00 E/A: 0.60 E'Medial: 3.26 E/E' Med: 14.60 PHT: 64.00 MVA PHT: 3.44 Decel Mower: 2.18 Aortic Valve AoV Pk Franklin: 0.86 AoV Mn Franklin: 0.67 AoV VTI: 0.17 AoV Pk Grad: 3.00 Aov Mn Grad: 2.00 GOLDIE Cont.VTI: 3.41 LVOT LVOT Pk [place]: 0.62 LVOT Mn Franklin: 0.40 LVOT VTI: 0.12 LVOT Pk Grad: 2.00 LVOT Mn Grad: 1.00 LVOT Diam: 2.50 LVOT Area: 4.91 Diastolic Function MV Pk E: 0.48 MV Pk A: 0.77 E/A: 0.60 E'Medial: 3.26 E/E' Med: 14.60 Right Ventricle TAPSE (mm): 19.70 TVS' Franklin: 8.27 Great Vessels Aorta Sinus of Valsalva: 3.91 2.0-3.5 cm Ao Asc: 4.10 2.1-3.4 cm Updated in Other Vendor System with Status of Final Nic Mendoza MD electronically signed on 10/10/2024 11:49:27 AM with status of Final
== END ==
LOC: HO.CARD 07:43
PROVIDERS: PCP Registered Nurse; Visit Provider Internal Medicine
DX: I77.810 Thoracic aortic ectasia (principal)
CPT/HCPCS: 93306

== ENCOUNTER → 2024-10-09 07:56 | Outpatient (BNV) | payer OTHER, SELFPAY | PROVIDERS: PCP Registered Nurse; Visit Provider Internal Medicine Cardiovascular Disease | DX: I51.89 Other ill-defined heart diseases (principal); I77.810 Thoracic aortic ectasia | CPT/HCPCS: 93306 ==

== ENCOUNTER 2024-10-24 10:50 | Outpatient (AMB) | payer OTHER, SELFPAY ==
--- OUTSIDE RECORDS SUMMARY | 2024-04-22 06:00 | XMS_ITS ---
Author Organization [facility] Address [address] [place] [address] Care Team Providers Care Dealer Compliance Representative Name Role Phone Franchesca Sykes Primary Care Provider Gus Mckeon Unavailable [phone] Encounters Encounter Location Date Provider Diagnosis [facility] [address] [address] 04/22/2024 Gus Sage Plan Of Treatment Next Appt Details Provider Name:Gus Sage , 02/05/2025 09:45:00 AM, [address] [address], [place], [address], Progress Notes * Maciej CASTREJONB:[birth year] (69 yo M)Acc No.[id number]:04/22/2024 Progress Note Patient: Casey FARIAS Provider: Reba Sage DPM :1955 A ge:69 Y S ex:Male Date:04/22/2024 Address:[address] [id number] Pcp:Franchesca Sykes Subjective: * Chief Complaints: * [...] 0 04/22/2024 Generated for Citlalli mayfield/Betsy/eTransmitting on: 0 10/24/2024 12:27 PM EDT
--- OUTSIDE RECORDS SUMMARY | 2024-07-17 05:30 | XMS_ITS ---
Author Organization [facility] Address [address] [place] [address] Care Team Providers Care Ethnoarchaeologist Name Role Phone Franchesca Sykes Primary Care Provider Gus Mckeon Unavailable [phone] Encounters Encounter Location Date Provider Diagnosis [facility] [address] [address] 07/17/2024 Gus Sage Plan Of Treatment Next Appt Details Provider Name:Gus Sage , 02/05/2025 09:45:00 AM, [address] [address], [place], [address], Progress Notes * Maciej CASTREJONB:[birth year] (69 yo M)Acc No.[id number]:07/17/2024 Progress Note Patient: Casey FARIAS Provider: Reba Sage DPM :1955 A ge:69 Y S ex:Male Date:07/17/2024 Address:[address] [id number] Pcp:Franchesca Sykes Subjective: * Chief Complaints: * [...] 0 07/17/2024 Generated for Citlalli mayfield/Betsy/eTransmitting on: 0 10/24/2024 12:27 PM EDT
--- OUTSIDE RECORDS SUMMARY | 2024-10-10 11:15 | XMS_ITS ---
Author Organization [facility] Address [address] [place] [address] Care Team Providers Care Group Teacher Name Role Phone Franchesca Sykes Primary Care Provider Gus Mckeon Unavailable [phone] Encounters Encounter Location Date Provider Diagnosis [facility] [address] [address] 10/10/2024 Gus Sage Plan Of Treatment Next Appt Details Provider Name:Gus Sage , 02/05/2025 09:45:00 AM, [address] [address], [place], [address], Progress Notes * Tom CASTREJON:[birth year] (69 yo M)Acc No.[id number]:10/10/2024 Progress Note Patient: Casey FARIAS Provider: Reba Sage DPM :1955 A ge:69 Y S ex:Male Date:10/10/2024 Address:[address] [place] Pcp:Franchesca Sykes Subjective: * Chief Complaints: * [...] 0 10/10/2024 Generated for Citlalli mayfield/Betsy/eTransmitting on: 0 10/24/2024 12:27 PM EDT
--- OUTSIDE RECORDS SUMMARY | 2024-10-23 06:30 | XMS_ITS ---
[facility] Address [address] [place] [address] Care Team Providers Care Social Contact Worker Name Role Phone Franchesca Sykes Primary Care Provider Gus Mckeon Unavailable [phone] Allergies Allergen (clinical drug ingredient) Drug/Non Drug Allergy documented on EMR Reaction Allergy Type Onset Date Status mirtazapine Remeron Unknown Drug Allergy Activ e REASON FOR VISIT At Risk Footcare, Toe Irritation, Ingrown Nail Medications Medication SIG (Take, Route, Frequency, Duration) Notes Start Date End Date Status Gabapentin 300 MG 1 capsule Orally Onc e a day; Duration: 30 day(s) Active FLUoxetine HCl 20 MG 1 capsule Orally On ce a day; Duration: 30 day(s) Active metFORMIN HCl ER 500 MG 1 tablet with ev ening meal Orally Once a day; Duration: 30 day(s) Active Lisinopril 5 MG 1 tablet Orally Once a day; Duration: 30 day(s) Active Carvedilol 6.25 MG 1 tablet with food O rally Twice a day; Duration: 30 day(s) Active Skyrizi 150 MG/ML as directed Subcutaneous Active Aspir-81 Active Calcium Citrate Acti ve Extra Depth Orthopedic Shoes (1 Pair) with Customized Heat Molded Multidensity Innersoles (3 Pair) as directed Dx: NIDDM/Polyneuropathy (E11.42), Hammertoe Foot Deformity (M20.41,M20.42), Preulcerative Skin Lesion(s) (L85.1 Active Atorvastatin Calcium 80 MG 1 tablet Oral ly Once a day; Duration: 30 day(s) Active Omeprazole 20 MG 1 capsule 30 minutes before morning meal Orally Once a day; Duration: 30 day(s) Active Social History Tobacco Use: Social History Observation Description Date Details (start date - stop date) Never Smoker NA - NA Tobacco use other than smoking: Question Answer Notes Are you an other tobacco user? No Tobacco Control (Standard) Question Answer Notes Tobacco use: Nonsmoker Additional Findings: Tobacco non-user Current no nsmoker AUDIT-C (Standard) Question Answer Notes Did you have a drink containing alcohol in the p ast year? No Points 0 Interpretation Negative Vital Signs Height 6ft in 10/23/2024 Weight 205 lbs 10/23/2024 BMI 27.8 kg/m2 10/23/2024 Blood pressure systolic 128 mm Hg 10/24/19 25 Blood pressure diastolic 65 mm Hg 025 Procedures Procedure Date Ordered Date Performed Result Body Sit e 93326-XJVXNGF NAIL, 6 OR MORE 10/23/2024 N/A 17054-Hmtaurtn Plate 10/23/2024 N/A 74491-UOLR SKIN LESIONS, 2 TO 4 10/23/2024 N/A Encounters Encounter Location Date Provider Diagnosis [facility] [address] [address] 10/23/2024 Gus Sage Tinea unguium B35.1 ; Type 2 diabetes mellitus with diabetic polyneuropathy E11.42 ; Other hammer toe(s) (acquired), right foot M20.41 ; Other hammer toe(s) (acquired), left foot M20.42 and Ingrown nail L60.0 Assessments Encounter Date Diagnosis (ICD Code) Assessment Notes Treatment Notes Treatment Clinical Notes Section Notes 10/23/2024 Tinea unguium (ICD-10 - B35.1) 10/23/2024 Type 2 diabetes mellitus with diabetic polyneuropathy (ICD-10 - E11.42) 10/23/2024 Other hammer toe(s) (acquired), right foot (ICD-10 - M20.41) Patient Educated with: DIABETIC FOOT CARE INSTRUCTIONS. pdf (DIABETIC FOOT CARE INSTRUCTIONS. pdf) 10/23/2024 Other hammer toe(s) (acquired), left foot (ICD-10 - M20.42) 10/23/2024 Ingrown nail (ICD-10 - L60.0) Plan Of Treatment Medication Medication Name Sig Start Date Stop Date Notes Extra Depth Orthopedic Shoes (1 Pair) with Customized Heat Molded Multidensity Innersoles (3 Pair) as directed Dx: NIDDM/Polyneuropathy (E11.42), Hammertoe Foot Deformity (M20.41,M20.42), Preulcerative Skin Lesion(s) (L85.1 Treatment Notes Assessment Notes Other hammer toe(s) (acquired), right fo ot Patient Educated with: DIABETIC FOOT CARE INSTRUCTIONS.pdf (DIABETIC FOOT CARE INSTRUCTIONS.pdf) Pending Test Test Name Order Date 60802-[id number] NAIL, 6 OR MORE 10/23/2024 62478-Uekujdno Plate 10/23/2024 55947-KPVI SKIN LESIONS, 2 TO 4 10/24/19 25 Next Appt Details Follow Up: 3 Months, Reason: Provider Name:Gus Sage , 02/05/2025 09:45:00 AM, [address] , [address], [place], [address], Procedure Notes * Category Sub-Category Detail Notes Nail Avulsion Procedure A fine sterile e levator was placed between the eponychium, nail fold, and nail plate to separate the structures. A sterile nail splitter, and/or sterile 316 blade, was then used to longitudinally section the nail along its entire length through the eponychium to the area under the nail fold. The offending portion of nail was from the nail bed with a rolling action and then removed with a hemostat. No underlying bone was identified. There was minimal bleeding as hemostasis was achieved through the temporary use of either a digital tourniquet or the aforementioned local with epinephrine. A bacitracin sterile dressing was applied. Local wound aftercare instructions were discussed and dispensed. The patient was informed of both conservative and future surgical procedures to prevent recurrence. Tylenol or Motrin was recommended for pain or discomfort (55863), DIABETES: Pt was advised as to the risk of delayed or nonhealing due to diabetes. Pt is to call the office with any questions, concerns, or complications Anesthesia was deferred - NEURO SATYA: patient has medically documented neuropathic condition affecting sensation Location Medial nail border, T5 Debride Nail 6-10 Nail debridement Due to the cl inical pathology outlined in the exam findings, performance of this nail treatment is medically necessary as its management by an unskilled/untrained nonprofessional would put this patients foot and overall health at risk. Therefore, debridement to affected nail(s), as described in exam ( TA, T1, T2, T3, T4, T5, T6, T7, T8, T9 ), was performed exclusively by the physician of record to reduce/remove overall nail length, girth, thickness, subungual debris, and necrotic tissue, by manual and/or electrical means through the use of a nail nipper and/or dremel-type precision jig grinder, to a more viable healthy nail plate or bed tissue 6-10 nails in total. Silver nitrate was used for any petechial bleeding as necessary. Definitive antifungal treatment options, both pharmaceutical and surgical, have been reviewed and discussed with the patient. The patient solely prefers the use of intermittent/as needed professional debridement services for their nail condition and understands the need for additional periodic treatments to maintain effectiveness in symptomatic relief - 03960 Keratoma Treatment Parring or Cutting o f Benign Hyperkeratotic Lesion(s) (-56) 2-4 Lesions - Due to the at risk nature of the patients medical condition as documented in the exam findings, performance of this keratoderma treatment is medically necessary as its management by an unskilled/untrained nonprofessional would put this patients foot and overall health at risk. Therefore, the benign hyperkeratotic lesions, (4) in total, locations as stated and described in the exam ( SUB MTH (s), 1, B/L, Plantar, Heel(s), B/L ), were pared, and/or cut utilizing a sterile 15 blade, tissue nippers, and/or power dremel instrumentation by the physician of record - [id number] Progress Notes * Casey CASTREJONDOB:[birth year] (69 yo M)Acc No.[id number]:10/23/2024 Progress Note Patient: Casey FARIAS Provider: Reba Sage DPM :1955 A ge:69 Y S ex:Male Date:10/23/2024 Address:[address], [place] Pcp:Franchesca Sykes Subjective: * Chief Complaints: * A t Risk FootcareToe IrritationIngrown Nail * HPI: A t Risk footcare: Pt States Last PCP Visit: D ate 0 07/31/2024 T oe pain: Location: B /L feet. Duration: s everal years. Course: w orse. Aggravated by: s hoes, any pressure. Treatments: c hange in shoes. * ROS: G eneral/Constitutional: Nausea d enies. V omiting d enies. H michelle Thirst d enies. L oss appetite d enies. C hills d enies. F atigue d enies.?Fever d enies. N ight Sweats d enies. U nexplained weight loss d enies. U nexplained weight gain d enies. H EENTM: Dentures a dmits. D izziness d enies. G lasses/contacts a dmits. R etinopathy d enies. B lurred/double vision d enies. T MJ?denies. D ischarge/drainage d enies. I mplants d enies. S ore throat d enies. D ental implants d enies. H cindy of hearing d enies. D ifficulty chewing/swallowing/speaking d enies. N ose bleeds d enies. S ore mouth d enies. ? R espiratory: On Oxygen d enies. P neumonia/pleurisy d enies.?Bronchitis d enies. E mphysema d enies. C oughing d enies. C ough blood?denies. S hortness of breath a dmits. W heezing d enies. C ardiovascular: Pacemaker d enies. M RIGGING SUPERVISOR d enies. W PW d enies. C HF d enies. H eart attack d enies. S eptal defect d enies. R apid beat d enies. C hest pain d enies. A trial Fib. d enies. M urmur/Palpitations d enies. G astrointestinal: Hemorrhoids d enies. S tomach/Abdominal pain d enies. D ark blood stool d enies. I rritable bowel d enies. C onstipation d enies. D iarrhea d enies. H ematology: Swelling d enies. C lots d enies. V aricose Veins d enies. B ruising d enies. B leeding problem d enies. G enitourinary: Blood urine d enies. F requent/Painfu/urination/bladder control d enies. K idney stones d enies. I nfection (UTI) d enies. N ephropathy d enies. s ex trans dis (STD) d enies. P rostate d enies. M usculoskeletal: Hammertoes a dmits. B unions d enies. B ack Pain d enies. M uscle Cramps/ Resting d enies. M uscle cramps / walking d enies.?Generalized aches and pains a dmits. W eakness d enies. I nteg.: Weber d enies. S cars d enies. C orns/calluses?admits. I ngrown nails a dmits. P ainful nails d enies. O pen Sores d enies. R ashes d enies. N eurologic: Difficulty sleeping d enies. B rain disorder d enies. N umbness a dmits. B alance trouble a dmits. C onfusion d enies. F ainting/blackouts d enies. T ingling d enies. T remors d enies. * Medical History: * Surgical History: c ataract surgery 10/2022, 12/2022 * Hospitalization/Major Diagno stic Procedure: D enies Past Hospitalization * Family History: M other: , diagnosed with Unspecified heart disease. F ather: , diagnosed with Unspecified heart disease. Father passed when pt was 7. * Social History: T obacco Use: T obacco use other than smoking A re you an other tobacco user? N o Tobacco Control (Standard) T obacco use: N onsmoker A dditional Findings: Tobacco non-user C urrent nonsmoker M iscellaneous: C affeine: no. Children: no. Exercise: yes, walking. Marital status: single. Occupation: Retired. D rug/Alcohol: A NICCI-C (Standard) D id you have a drink containing alcohol in the past year? N o P oints 0 I nterpretation N egative * Medications: T akingAspir-81 Atorvastatin Calcium 80 MG Tablet 1 tablet Orally Once a day Calcium Citrate Carvedilol 6.25 MG Tablet 1 tablet with food Orally Twice a day FLUoxetine HCl 20 MG Capsule 1 capsule Orally Once a day Gabapentin 300 MG Capsule 1 capsule Orally Once a day Lisinopril 5 MG Tablet 1 tablet Orally Once a day metFORMIN HCl ER 500 MG Tablet Extended Release 24 Hour 1 tablet with evening meal Orally Once a day Omeprazole 20 MG Capsule Delayed Release 1 capsule 30 minutes before morning meal Orally Once a day Skyrizi 150 MG/ML Solution Prefilled Syringe as directed Subcutaneous Extra Depth Orthopedic Shoes (1 Pair) with Customized Heat Molded Multidensity Innersoles (3 Pair) as directed Dx: NIDDM/Polyneuropathy (E11.42), Hammertoe Foot Deformity (M20.41,M20.42), Preulcerative Skin Lesion(s) (L85.1 Medication List reviewed and reconciled with the patientTaking Aspir-81 Taking Atorvastatin Calcium 80 MG Tablet 1 tablet Orally Once a day Taking Calcium Citrate Taking Carvedilol 6.25 MG Tablet 1 tablet with food Orally Twice a day Taking FLUoxetine HCl 20 MG Capsule 1 capsule Orally Once a day Taking Gabapentin 300 MG Capsule 1 capsule Orally Once a day Taking Lisinopril 5 MG Tablet 1 tablet Orally Once a day Taking metFORMIN HCl ER 500 MG Tablet Extended Release 24 Hour 1 tablet with evening meal Orally Once a day Taking Omeprazole 20 MG Capsule Delayed Release 1 capsule 30 minutes before morning meal Orally Once a day Taking Skyrizi 150 MG/ML Solution Prefilled Syringe as directed Subcutaneous Taking Extra Depth Orthopedic Shoes (1 Pair) with Customized Heat Molded Multidensity Innersoles (3 Pair) as directed Dx: NIDDM/Polyneuropathy (E11.42), Hammertoe Foot Deformity (M20.41,M20.42), Preulcerative Skin Lesion(s) (L85.1 Medication List reviewed and reconciled with the patient * Allergies: R kina[Allergies Verified] Objective: * Vitals: H t:6ft, Wt:205, BMI:27.8, Shoe size:13, BP:128/65mm Hg, BS:129, Ht-cm: 182.88 cm, Wt-k.99 kg. * P ast Orders: L ab:HEMOGLOBIN A1C (GLYCOHEMOGLOBIN) (Order Date - 10/23/2024) (Collection Date & Time - 10/23/2024 10:45 AM) Value Reference Range HEMOGLOBIN A1C % (HH) 7.0 * Examination: O phthalmology Referral: DIABETES EYE EXAM P rocedure Performed: Y peyton Ross ate of Exam Performed 1 03/10/2023 States next appt soon - Mid Jan D iabetic Retinopathy Screening: Y peyton R etinal Screening Performed: Y peyton F indings of Diabetic Eye Exam: n o retinopathy N eurological: SENSORY: N eurological exam demonstrates a loss of protective sensation by an absence of tested sensitivity to 5.07 Ezel-Scott monofilament at 2 or more sites out of 5 total locations, each foot. N ails: NAILS are: E longated, overgrown, dystrophic, lytic, greater than 3mm thick, discolored and friable with crumbly malodorous subungual debris, TA, T1, T2, T3, T4, T5, T6, T7, T8, T9. D ermatologic: SKIN FINDINGS: S kin exam reveals Keratotic lesion(s) located at, SUB MTH (s), 1, B/L, Plantar, Heel(s), B/L. I ngrown Nail: INSPECTION: R eveals nail incurvation, dull pain on palpation due to neuropathy, groove hypertrophy, Medial nail border, T5. O rthopedic: MUSCLE STRENGTH: 5 /5 all groups in a symmetrical fashion, B/L. 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 DIGITAL DEFORMITIES: D igital contracture, PIPJ, 2-5 B/L, incompl-reducible to push-up test, no over, nor underlapping, t here is e vidence of shoe producing skin irritation. FOOTWEAR EVALUATION: w orn, non-supportive, shoe gear properties exacerbate patient's foot/toe deformity. V ascular: DP PULSES (B): 0 /4, B/L. PT PULSES (B): 0/4, B/L. CAPILLARY FILL TIME: d elayed, all digits, B/L. TROPHIC CONDITION-TEXTURE/ELASTICITY/TURGOR/HAIR GROWTH (B):?decreased, with sparse to absent hair growth, B/L. TEMPERTURE GRADIENT (C): d ecreased, cool to cool, proximal to distal, B/L. PIGMENTATION: m ottled, B/L. EDEMA (C): 1/4, Left foot. CLAUDICATION (C): d enies, B/L. REST PAIN: d enies, B/L. TELANGECTASIA: a bsent. VARICOSITIES: a bsent. G eneral Examination: GENERAL APPEARANCE: Pham grossman a pleasant, alert, well nourished, well-developed, well hydrated individual, who demonstrates proper attention to hygiene/body habitus, and is in no acute distress, Pt serves as own historian for office visit today. ORIENTED: p erson, place, and time. FOOT EXAM: L ower Extremity Neurological Exam performed:?Yes V isual exam of foot performed: Y es D ate 0 10/23/2024 Footwear Evaluation F ootwear Evaluation performed: Y es Assessment: * Assessment: 1. T inea unguium - B35.1 2 . T ype 2 diabetes mellitus with diabetic polyneuropathy - E11.42 (Primary) 3 . O ther hammer toe(s) (acquired), right foot - M20.41 S pecify :Chronic problem, Worse (4), Rx Management (4) 4 . O ther hammer toe(s) (acquired), left foot - M20.42 S pecify :Chronic problem, Worse (4), Rx Management (4) 5 . I ngrown nail - L60.0 S pecify :Medial nail border, T 5 Plan: * Treatment: 2. O ther hammer toe(s) (acquired), right foot Start Extra Depth Orthopedic Shoes (1 Pair) with Customized Heat Molded Multidensity Innersoles (3 Pair), as directed, Dx: NIDDM/Polyneuropathy (E11.42), Hammertoe Foot Deformity (M20.41,M20.42), Preulcerative Skin Lesion(s) (L85.1, 1, Refills 0. Notes: Patient Educated with: DIABETIC FOOT CARE INSTRUCTIONS.pdf (DIABETIC FOOT CARE INSTRUCTIONS.pdf) 3. I ngrown nail P rocedure: 20002-Rmmslrpf Plate * Procedures: D ebride Nail 6-10: Nail debridement D ue to the clinical pathology outlined in the exam findings, performance of this nail treatment is medically necessary as its management by an unskilled/untrained nonprofessional would put this patients foot and overall health at risk. Therefore, debridement to affected nail(s), as described in exam ( T A, T1, T2, T3, T4, T5, T6, T7, T8, T9 ) , was performed exclusively by the physician of record to reduce/remove overall nail length, girth, thickness, subungual debris, and necrotic tissue, by manual and/or electrical means through the use of a nail nipper and/or dremel-type precision jig grinder, to a more viable healthy nail plate or bed tissue 6-10 nails in total. Silver nitrate was used for any petechial bleeding as necessary. Definitive antifungal treatment options, both pharmaceutical and surgical, have been reviewed and discussed with the patient. The patient solely prefers the use of intermittent/as needed professional debridement services for their nail condition and understands the need for additional periodic treatments to maintain effectiveness in symptomatic relief - 11044. K eratoma Treatment: Parring or Cutting of Benign Hyperkeratotic Lesion(s) ( -56) 2-4 Lesions - Due to the at risk nature of the patients medical condition as documented in the exam findings, performance of this keratoderma treatment is medically necessary as its management by an unskilled/untrained nonprofessional would put this patients foot and overall health at risk. Therefore, the benign hyperkeratotic lesions, (4) in total, locations as stated and described in the exam ( S UB MTH (s), 1 , B /L, P lantar, H eel(s), B /L ) , were pared, and/or cut utilizing a sterile 15 blade, tissue nippers, and/or power dremel instrumentation by the physician of record - 12727. N ail Avulsion: Location M edial nail border, T 5. Anesthesia w as deferred - NEUROPATHY: patient has medically documented neuropathic condition affecting sensation. Procedure A fine sterile elevator was placed between the eponychium, nail fold, and nail plate to separate the structures. A sterile nail splitter, and/or sterile 316 blade, was then used to longitudinally section the nail along its entire length through the eponychium to the area under the nail fold. The offending portion of nail was from the nail bed with a rolling action and then removed with a hemostat. No underlying bone was identified. There was minimal bleeding as hemostasis was achieved through the temporary use of either a digital tourniquet or the aforementioned local with epinephrine. A bacitracin sterile dressing was applied. Local wound aftercare instructions were discussed and dispensed. The patient was informed of both conservative and future surgical procedures to prevent recurrence. Tylenol or Motrin was recommended for pain or discomfort (69155), DIABETES: Pt was advised as to the risk of delayed or nonhealing due to diabetes. Pt is to call the office with any questions, concerns, or complications. * Procedure Codes: 1 1730 Avulsion Plate, Modifiers: XS , [id number] TRIM SKIN LESIONS, 2 TO 4, Modifiers: XS 30767 DEBRIDE NAIL, 6 OR MORE, Modifiers: XS * Preventive Medicine: Counseling: D iscussion: - 14: Office or other outpatient visit for the evaluation and management of an established patient, which required a medically appropriate history and/or examination and MODERATE level of DECISION MAKING for: 1 OR MORE CHRONIC PROBLEM(S) THATS WORSENING, 2 STABLE CHRONIC PROBLEMS, A NEWLY DIAGNOSED PROBLEM WITH UNCERTAIN PROGNOSIS, AN ACUTE COMPLICATED INJURY WITH MULTIPLE TREATMENT OPTIONS, OR AN ACUTE PROBLEM WITH ACCOMPANYING SYSTEMIC SYMPTOMS, THAT POSE(S) A MODERATE RISK OF MORBIDITY. THIS CONDITION MAY ALSO INCLUDE RX DRUG MANAGEMENT, OR A DECISON FOR MINOR SURGERY. The visit on the day of the encounter encompassed interpreting the data and educating the patient as to the nature of their condition, treatment options available according to their individual PMH, meds, allergies, and overall health/living conditions, as well as any potential risks or complications that may occur from a failure to adhere to, and participate in, the recommended course of therapy. The discussion included a complete verbal, and/or written explanation of the examination results, any x-rays taken, the proposed diagnosis, and outline of the treatment plan. A schedule for future care needs was also explained. The patient verbalized an understanding of the instructions at this time and agreed to be an active participant in their treatment. If the patient should think of any questions or concerns after the visit, I have encouraged the patient to call the office. A t Risk Diabetic/ASO/PVD Footcare: T he patient was advised against self nail/callus care due to inherent risks for infection, loss of limb/life given, diabetes, neuropathy. D igital Surgery: D igital surgery was discussed with the patient, We elected to try conservative treatment at the present time, due to the patients medical history and increased asssociated post-operative risks. D igital Treatment: H T- I explained to the patient the possible etiologies of Hammertoes, including genetics/foot type/shoegear/activity level/exercise routine and the risks/benefits of all the different treatment options for their pain including: No treatment at all, Rest, Ice, New/supportive/wider/deeper Shoegear, Digital Padding/Strapping/Taping/Bracing/Gel protective sleeves, Foot/Ankle AFO Bracing, Stretching exercises, Deep Tissue Massage, Arch support/shoe inserts with splay metatarsal padding, and Custom orthoses. I insisted that any digital devices be removed daily and not worn overnight for safety. The patient is to carefully examine the toes daily for any skin irritation while using any splinting or padding device. The advantages and disadvantages of each option were discussed and the patients questions re: shoegear, padding, custom vs prefabricated inserts, activity level, and consistency in home treatment regimens for optimal success were answered to their verbally confirmed satisfaction. Eric jacobs Gear Counseling: Eric JACOBS Rx - The patient was counseled in great detail on their muscoloskeletal foot and toe deformities which coincided with the dermatological presentations visualized on exam. We discussed how their deformities put the integrity of their feet at risk for potential pedal complications which makes the accomidative diabetic shoes and cutomizable inserts medically necessary. We discussed the different shoe and insert treatment types and options, as well as the important advantages for adhering to regularly wearing these accomidative devices daily. The patient was made aware of the fact that a failure to abide by these recommedations may be deleterious to their foot health as they are able to prevent many pedal complications such as skin irritation, skin ulceration, infection, and even loss of toe/foot/leg/or life. Time was also spent with the patient dispensing and discussing proper diabetic footcare techniques including daily skin moisturization, daily foot inspection for any interruption in skin integrity including open lesions, or sign of infection such as redness/malodor/drainage/swelling. Also discussed and recommended were procedures regarding daily shoe inspection for the presence of internal foreign bodies as well as any visualized irregular shoe or insert wear. Patient questions re: shoes, inserts, and self foot inspections were answered to their satisfaction as the patient verbally confirmed a full understanding of the above information. A Rx for Extra Depth Orthopedic Shoes with 3 pair of custom heat-molded inserts was dispensed. Screening/Special Tests: F all Risk Screening: N o falls in the past year F ALLS: Screening for Future Fall Risk Have you had any falls with injury in the past year? N o Despite neuropathy * Follow Up: 3 Months * Images: * Sign off status: Completed true * Provider: Reba Sage DPM Date: 10/23/2024 Generated for Citlalli mayfield/Betsy/Miguel on: 10/24/2024 12:27 PM EDT History and Physical Notes * HPI (History of Present Illness) Category Sub-Category Detail Notes Category Not es Toe pain Location: B/L feet Duration: several years Course: worse Aggravated by: shoes, any pressure Treatments: change in shoes At Risk footcare Pt States Last PCP Visit: Date: 5 Examination Category Sub-Category Detail Notes Category Not es Ingrown Nail INSPECTION: Reveals nail inc urvation, dull pain on palpation due to neuropathy, groove hypertrophy, Medial nail border, T5 Neurological SENSORY: Neurological exa m demonstrates a loss of protective sensation by an absence of tested sensitivity to 5.07 Ezel-Scott monofilament at 2 or more sites out of 5 total locations, each foot Dermatologic SKIN FINDINGS: Skin exam reveal s Keratotic lesion(s) located at, SUB MTH (s), 1, B/L, Plantar, Heel(s), B/L Orthopedic FOOT MORPHOLOGY: (-) 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 FOOTWEAR EVALUATION: worn, non-supportiv e, shoe gear properties exacerbate patient's foot/toe deformity DIGITAL DEFORMITIES: Digital contracture , PIPJ, 2-5 B/L, incompl-reducible to push-up test, no over, nor underlapping, there is evidence of shoe producing skin irritation MUSCLE STRENGTH: 5/5 all groups in a symmetrical fashion, B/L General Examination GENERAL APPEARANCE: Reveals a pleasant, alert, well nourished, well-developed, well hydrated individual, who demonstrates proper attention to hygiene/body habitus, and is in no acute distress, Pt serves as own historian for office visit today FOOT EXAM: Lower Extremity Neurological Exa m performed:: Yes Visual exam of foot performed:: Yes Date: 10/23/2024 ORIENTED: person, place, and t venus Footwear Evaluation Footwear Evaluation performe d:: Yes Ophthalmology Referral DIABETES EYE EXAM Procedure Perform ed:: Yes Date of Exam Performed: 01/09/2024 States next appt soon - Mid Dec Diabetic Retinopathy Screening:: Yes Retinal Screening Performed:: Yes Findings of Diabetic Eye Exam:: no retin opathy Vascular DP PULSES (B): 0/4, B/L PT PULSES (B): 0/4, B/L CAPILLARY FILL TIME: delayed, all digits , B/L TEMPERTURE GRADIENT (C): decreased, cool to cool, proximal to distal, B/L TROPHIC CONDITION-TEXTURE/ELASTICITY/TURGOR/HAIR GROWTH (B): decreased, with sparse to absent hair gr owth, B/L EDEMA (C): 1/4, Left foot TELANGECTASIA: absent VARICOSITIES: absent CLAUDICATION (C): denies, B/L REST PAIN: denies, B/L PIGMENTATION: mottled, B/L Nails NAILS are: Elongated, overg rown, dystrophic, lytic, greater than 3mm thick, discolored and friable with crumbly malodorous subungual debris, TA, T1, T2, T3, T4, T5, T6, T7, T8, T9
--- NOTE | 2024-10-24 11:03 | A.OFFVIS_ITS ---
Vital Signs 10/24/24 11:04 Height 6 ft Weight 196 lb 3.382 oz BMI 26.6 BP 118/60 Blood Pressure Location Lt brachial Position Sitting Pulse 75 Pulse Source Monitor Intake Visit Reasons: 1 yr f/up Allergies mirtazapine (From REMERON) Allergy (Intermediate, Verified 08/07/23 16:38) NAUSEA phenytoin Allergy (Unknown, Verified 08/07/23 16:38) NAUSEA/VOMITING STOMACH UPSET Medication List - Last Reconciled 10/24/24 by Gilbert Sommers MD albuterol sulfate 90 mcg/actuation 2 puffs inhalation QID PRN aspirin 81 mg PO DAILY atorvastatin 80 mg PO DAILY 90 days benzonatate (Tessalon Perles) 100 mg PO TID PRN calcium citrate-vitamin D3 200 mg-6.25 mcg (250 unit) 0 tabs PO carvedilol 6.25 mg PO BID cyanocobalamin (vitamin B-12) 0 mcg PO fluoxetine 20 mg PO DAILY folic acid 1 mg PO DAILY gabapentin 300 mg PO TID lisinopril 5 mg PO DAILY metformin ER 500 mg PO DAILY multivitamin 1 tab PO DAILY nitroglycerin 0.4 mg sublingual Q5M PRN omeprazole 20 mg PO DAILY thiamine HCl (vitamin B1) (Vitamin B-1) 100 mg PO DAILY umeclidinium 62.5 mcg/actuation 0 inhalations inhalation HPI Comments Details: Casey is here for follow-up regarding coronary disease. In the past, he has had hospitalization for chest pains thought to be atypical for angina. Subsequently, underwent noninvasive workup including echocardiogram, stress test and coronary CTA. Since last seen, no new complaints. He states he is feeling fine. [facility] Medical History Osteoarthritis Gout Diabetes Essential hypertension Atherosclerotic cardiovascular disease Ascending aorta dilatation Surgical History No pertinent past surgical history Family History Family/Other No problems noted. Mother NSTEMI (non-ST elevated myocardial infarction) CVD (cardiovascular disease) Brother CVD (cardiovascular disease) NSTEMI (non-ST elevated myocardial infarction) Sister CVD (cardiovascular disease) NSTEMI (non-ST elevated myocardial infarction) Social History Alcohol intake: current Alcohol intake frequency: 3 or more drinks per day Alcohol type: beer Patient Tobacco Use Status: Never used Tobacco Review of Systems Const Denies weakness ENT Denies dizziness Card Denies chest pain, Denies chest pain with activity, Denies syncope, Denies rapid heart rate, Denies pedal edema, Denies edema, Denies leg edema, Denies lightheadedness, Denies palpitations, Denies dyspnea, Denies dyspnea on exertion and Denies orthopnea Resp Denies cough, Denies dyspnea and Denies dyspnea on exertion GI Denies hematochezia and Denies change in stool character Musc Denies abnormal gait, Denies muscle cramps, Denies muscle weakness, Denies numbness, Denies radiating pain into limb and Denies tingling Neuro Denies abnormal gait, Denies dizziness, Denies syncope, Denies numbness, Denies tingling and Denies weakness Endo Denies palpitations Physical Exam Vital Signs: Last Vital Signs Pulse 75 10/24/24 11:04 BP 118/60 10/24/24 11:04 BMI result Body Mass Index 26.6 Const General: comfortable and no acute distress Orientation/consciousness: patient oriented x3 HEENT Other: Unremarkable Head: Yes normal to inspection Neck Neck: Yes normal visual inspection Chest Chest palpation & inspection: normal inspection of the chest Resp Auscultation: clear to auscultation bilaterally Cardio Palpation: normal PMI Heart sounds: S1 normal heart sound present, S2 normal heart sound present, no gallops, no murmurs and no rubs GI Palpation (GI): Soft to palpation Back/Spine/Pelvis Other: unremarkable Skin General skin exam: no rashes or lesions noted Neuro General: patient oriented x3 Extrem General: Yes normal to inspection Psych Mental Status: mental status grossly normal Office Procedures EKG Details: EKG with underlying sinus rhythm at 75/Min; cannot exclude old inferior infarct; [place] [address]-Qebxlacncybfmmrxe, Complete Assessment & Plan Assessment & Plan (1) Atherosclerotic cardiovascular disease: Code(s): I25.10 - Atherosclerotic heart disease of [place] coronary artery without angina pectoris Category: Medical Plan: Coronary CTA 2019- vtwx-zl-nbugmssm atherosclerotic disease without any obstructive lesions. In today's EKG, is finding of inferior infarct but not clear if it is a normal variant versus a true finding. In the recent echocardiogram, no inferior wall motion abnormality reported. Clinically, he has got no angina. It has been so many years since the CTA, we will repeat the study for any progressive CAD. Remains on aspirin and statins. [place] [facility] [place]/dL and triglycerides 160 mg/dL. (2) Cardiomyopathy: Code(s): I42.9 - Cardiomyopathy, unspecified Category: Medical Plan: In the recent echocardiogram, LVEF is 50-55%. Previously, 45-50%. No significant change. On carvedilol and lisinopril. (3) Essential hypertension: Code(s): I10 - Essential (primary) hypertension Category: Medical Plan: Stable. (4) Ascending aorta dilatation: Code(s): I77.810 - Thoracic aortic ectasia Category: Medical Plan: Ascending aortic size 4.1 cm. Stable. Can be followed on echocardiogram. Plan Discussion Notes I discussed with the patient the importance of repeating the CT scan, given the six-year interval since the last one, to ensure comprehensive health monitoring. The patient was informed that there were no adverse reactions previously, and the scan will help in identifying any potential issues early. Patient was informed and verbally consented to the use of an ambient scribe for clinic note documentation during this visit. Orders: Orders CT Cardiac Coronary Angio Today I25.10 - Atherosclerotic heart disease of [place] coronary artery without angina pectoris Basic Metabolic Panel Today I25.10 - Atherosclerotic heart disease of [place] coronary artery without angina pectoris Patient Instructions: - Schedule and complete the ordered CT scan. - Report any chest pain or other cardiac symptoms immediately. Coding Level of Care Code Est Pt Level 4 (22403) Complex EM visit Add On G2211 Diagnoses Atherosclerotic cardiovascular disease I25.10 Cardiomyopathy I42.9 Essential hypertension I10 Ascending aorta dilatation I77.810 CPT Codes EKG - CPT: 94367-Zcmkhhfgrbdhraszk, Complete ([id number])
[2024-10-24 11:04] VITALS: BP 118/60; PULSE 75; BMI 26.6
--- OUTSIDE RECORDS SUMMARY | 2024-10-24 12:27 | XMS_ITS | Patient Health Record ---
[facility] Address [address] [place] [address] Care Team Providers Care Bill Board Poster Name Role Phone OnelFranchesca Primary Care Provider UnavailGus Thomas Unavailable [phone] Charles Clemens Unavailable [phone] Charlotte Abraham Unavailable [phone] Allergies Allergen (clinical drug ingredient) Drug/Non Drug Allergy documented on EMR Reaction Allergy Type Onset Date Status mirtazapine Remeron Unknown Drug Allergy Activ e Results Component Value Reference Range Notes HEMOGLOBIN A1C (GLYCOHEMOGLO BIN) Reviewed date:10/23/2024 10:45:53 AM Interpretation: Performing Lab: Notes/Report: HEMOGLOBIN A1C % (HH) 7.0 Reason For Referral No Information Medications Medication SIG (Take, Route, Frequency, Duration) [...] Once a day; Duration: 30 day(s) Active Skyrizi 150 MG/ML as directed Subcutaneous Active Omeprazole 20 MG 1 capsule 30 minutes before morning meal Orally Once a day; Duration: 30 day(s) Active Aspir-81 Active Calcium Citrate Acti ve [...] Twice a day; Duration: 30 day(s) Active Immunizations Vaccine Route Administration Date Status Comme nts Influenza Unknown 11/22/2023 Administered Social History Tobacco Use: Social History Observation Description Date Details (start date - stop date) Never Smoker NA - NA Alcohol Screen Question Answer Notes Did you have a drink contain ing alcohol in the past year? Yes How often did you have a dri nk containing alcohol in the past year? 2 to 4 times a month (2 points) Points 2 Interpretation Negative Tobacco use other than smoking: Question Answer Notes Are you an other tobacco user? No Tobacco Control (Standard) Question Answer Notes Tobacco use: Nonsmoker Additional Findings: Tobacco non-user Current no nsmoker AUDIT-C (Standard) Question Answer Notes Did you have a drink containing alcohol in the p ast year? No Points 0 Interpretation Negative Problems Problem Type SNOMED Code ICD Code Onset Dates Problem Status W/U Status Risk Notes Problem Acquired hammer toe of right foot (8561941023554108 ) Other hammer toe(s) (acquired), right foot (M20.41) Active confirmed Problem Acquired hammer toe of left foot (1422351239980022 ) Other hammer toe(s) (acquired), left foot (M20.42) Active confirmed Problem Polyneuropathy due to type 2 diabetes mellitus (625938219) Type 2 diabetes mellitus with diabetic polyneuropathy (E11.42) Active confirmed Vital Signs Blood pressure diastolic 65 mm Hg 10/23/2024 Height 6ft in 10/23/2024 Blood pressure systolic 128 mm Hg 10/23/2024 Weight 205 lbs 10/23/2024 BMI 27.8 kg/m2 10/23/2024 Procedures Procedure Date Ordered Date Performed Result Body Sit e 50355-FXQZMVW NAIL, 6 OR MORE 01/22/2024 N/A 95227-Hdoiddfe Plate 01/22/2024 N/A 64206-EDTY SKIN LESIONS, 2 TO 4 01/22/2024 N/A 86802-EAPNRAK NAIL, 6 OR MORE 10/23/2024 N/A 04177-Uwxjomdh Plate 10/23/2024 N/A 09460-PDLN SKIN LESIONS, 2 TO 4 10/23/2024 N/A Encounters Encounter Location Date Provider Diagnosis [address] [address] 01/22/2024 Gus Sage Type 2 diabetes mellitus with diabetic polyneuropathy E11.42 ; Tinea unguium B35.1 ; Other hammer toe(s) (acquired), right foot M20.41 ; Other hammer toe(s) (acquired), left foot M20.42 and Ingrown nail L60.[address] [address] 10/23/2024 Gus Sage Tinea unguium B35.1 ; Type 2 diabetes mellitus with diabetic polyneuropathy E11.42 ; Other hammer toe(s) (acquired), right foot M20.41 ; Other hammer toe(s) (acquired), left foot M20.42 and Ingrown nail L60.[address] [address] 04/22/2024 [facility] [address] [address] 07/17/[address] [address] [facility] [address] [address] 07/22/2024 Gus Sage Assessments Encounter Date Diagnosis (ICD Code) Assessment Notes Treatment Notes Treatment Clinical Notes Section Notes 01/22/2024 Type 2 diabetes mellitus with diabetic polyneuropathy (ICD-10 - E11.42) 01/22/2024 Tinea unguium (ICD-10 - B35.1) 10/23/2024 Tinea unguium (ICD-10 - B35.1) 10/23/2024 Type 2 diabetes mellitus with diabetic polyneuropathy (ICD-10 - E11.42) 10/23/2024 Other hammer toe(s) (acquired), right foot (ICD-10 - M20.41) Patient Educated with: DIABETIC FOOT CARE INSTRUCTIONS. pdf (DIABETIC FOOT CARE INSTRUCTIONS. pdf) 01/22/2024 Other hammer toe(s) (acquired), right foot (ICD-10 - M20.41) Patient Educated with: DIABETIC FOOT CARE INSTRUCTIONS. pdf (DIABETIC FOOT CARE INSTRUCTIONS. pdf) 01/22/2024 Other hammer toe(s) (acquired), left foot (ICD-10 - M20.42) 10/23/2024 Other hammer toe(s) (acquired), left foot (ICD-10 - M20.42) 10/23/2024 Ingrown nail (ICD-10 - L60.0) 01/22/2024 Ingrown nail (ICD-10 - L60.0) Plan Of Treatment Pending Test Test Name Order Date 23538-PWCLCWK NAIL, 6 OR MORE 01/22/2024 10129-UOBBGFT NAIL, 6 OR MORE 10/23/2024 25986-Bzufnbba Plate 10/23/2024 68086-Ytwaypox Plate 01/22/2024 93614-KIDD SKIN LESIONS, 2 TO 4 01/22/20 24 00913-WVMM SKIN LESIONS, 2 TO 4 09/14/19 23 90616-JNKJ SKIN LESIONS, 2 TO 4 01/18/20 23 70992-ELUH SKIN LESIONS, 2 TO 4 10/24/19 25 Next Appt Details Provider Name:Gus Buck Sage , 02/05/2025 09:45:00 AM, [address] [facility], [address] [place] [address], [place], [address], Insurance Providers Payer Name Payer Address Payer Phone Subscriber Number Group Number Insured Name Patient Relationship to Insured Coverage Start Date Coverage End Date [facility] [employer] Claims [address] [place] [id number] Casey Boss Self - patient is the insured Medical (General) History Medical History History ICD Code Anxiety Back,Hip,and Knee pain Depression Diabetic Gout Heart disease High blood pressure Osteoporosis Psoriasis/eczema Stroke Hypercholesterolemia Surgical History Surgery Date(Month/Year) cataract surgery 10/2022, 12/2022
== END 2024-10-24 11:28 | disposition home or self-care (01) ==
LOC: HO.HCS 10:51
PROVIDERS: Visit Provider Internal Medicine
DX: I25.10 Atherosclerotic heart disease of native coronary artery without angina pectoris (principal); I42.9 Cardiomyopathy, unspecified; I10 Essential (primary) hypertension; I77.810 Thoracic aortic ectasia
CPT/HCPCS: 93010; 99214; G2211

== ENCOUNTER → 2024-10-24 10:50 | Outpatient (BNVA) | payer OTHER, SELFPAY | PROVIDERS: Visit Provider Internal Medicine | DX: I25.10 Atherosclerotic heart disease of native coronary artery without angina pectoris (principal); I10 Essential (primary) hypertension; I77.810 Thoracic aortic ectasia; I42.9 Cardiomyopathy, unspecified | CPT/HCPCS: 93005; 99212 ==

== ENCOUNTER 2024-12-01 10:36 | Outpatient (REF) | payer OTHER, SELFPAY ==
--- OUTSIDE RECORDS SUMMARY | 2024-04-22 06:00 | XMS_ITS ---
Author Organization [facility] Address [address] [place] [address] Care Team Providers Care Biological Lab Technician Name Role Phone Franchesca Sykes Primary Care Provider Gus Mckeon Unavailable [phone] Encounters Encounter Location Date Provider Diagnosis [facility] [address] [address] 04/22/2024 Gus Sage Plan Of Treatment Next Appt Details Provider Name:Gus Sage , 02/05/2025 09:45:00 AM, [address] [address], [place], [address], Progress Notes * Maciej CASTREJONB:[birth year] (69 yo M)Acc No.[id number]:04/22/2024 Progress Note Patient: Casey FARIAS Provider: Reba Sage DPM :1955 A ge:69 Y S ex:Male Date:04/22/2024 Address:[address] [id number] Pcp:Franchesca Sykes Subjective: * Chief Complaints: * [...] 04/22/2024 Generated for Citlalli mayfield/Betsy/eTransmitting on: 1 10:43 AM EDT
--- OUTSIDE RECORDS SUMMARY | 2024-07-17 05:30 | XMS_ITS ---
Author Organization [facility] Address [address] [place] [address] Care Team Providers Care Honey Processor Name Role Phone Franchesca Sykes Primary Care Provider Gus Mckeon Unavailable [phone] Encounters Encounter Location Date Provider Diagnosis [facility] [address] [address] 07/17/2024 Gus Sage Plan Of Treatment Next Appt Details Provider Name:Gus Sage , 02/05/2025 09:45:00 AM, [address] [address], [place], [address], Progress Notes * Tom CASTREJON:[birth year] (69 yo M)Acc No.[id number]:07/17/2024 Progress Note Patient: Casey FARIAS Provider: Reba Sage DPM :1955 A ge:69 Y S ex:Male Date:07/17/2024 Address:[address] [place] Pcp:Franchesca Sykes Subjective: * Chief Complaints: * [...] 07/17/2024 Generated for Citlalli mayfield/Betsy/eTransmitting on: 1 10:43 AM EDT
--- OUTSIDE RECORDS SUMMARY | 2024-10-10 11:15 | XMS_ITS ---
Author Organization [facility] Address [address] [place] [address] Care Team Providers Care Transfer Operator Name Role Phone Franchesca Sykes Primary Care Provider Gus Mckeon Unavailable [phone] Encounters Encounter Location Date Provider Diagnosis [facility] [address] [address] 10/10/2024 Gus Sage Plan Of Treatment Next Appt Details Provider Name:Gus Sage , 02/05/2025 09:45:00 AM, [address] [address], [place], [address], Progress Notes * Tom CASTREJON:[birth year] (69 yo M)Acc No.[id number]:10/10/2024 Progress Note Patient: Casey FARIAS Provider: Reba Sage DPM :1955 A ge:69 Y S ex:Male Date:10/10/2024 Address:[address] [id number] Pcp:Franchesca Sykes Subjective: * Chief Complaints: * [...] 10/10/2024 Generated for Citlalli mayfield/Betsy/eTransmitting on: 1 10:44 AM EDT
--- OUTSIDE RECORDS SUMMARY | 2024-12-01 10:44 | XMS_ITS | Patient Health Record ---
Author Organization [facility] Address [address] [place] [address] Care Team Providers Care Trap Setter Name Role Phone OnelFranchesca Primary Care Provider UnavailGus Thomas Unavailable [phone] Charles Winston Unavailable [phone] Charlotte Abraham Unavailable [phone] Allergies Allergen (clinical drug ingredient) Drug/Non Drug [...] Problem Acquired hammer toe of right foot (2954426116550813 ) Other hammer toe(s) (acquired), right foot (M20.41) Active confirmed Problem Acquired hammer toe of left foot (8196888937402213 ) Other hammer toe(s) (acquired), left foot (M20.42) Active confirmed Problem Polyneuropathy due to type 2 diabetes mellitus (757019827) Type 2 diabetes mellitus with diabetic polyneuropathy (E11.42) Active confirmed Vital Signs Blood pressure diastolic 65 mm Hg 10/23/2024 Height 6ft in 10/23/2024 Blood pressure systolic 128 mm Hg 10/23/2024 Weight 205 lbs 10/23/2024 BMI 27.8 kg/m2 10/23/2024 Procedures Procedure Date Ordered Date Performed Result Body Sit e 42513-MGSKWDF NAIL, 6 OR MORE 01/22/2024 N/A 08564-Tsucogkf Plate 01/22/2024 N/A 19437-CFTT SKIN LESIONS, 2 TO 4 01/22/2024 N/A 94237-ZJDGOFC NAIL, 6 OR MORE 10/23/2024 N/A 81357-Yrblkdnv Plate 10/23/2024 N/A 02272-PAUF SKIN LESIONS, 2 TO 4 10/23/2024 N/A Encounters Encounter Location Date Provider Diagnosis [address] [address] 01/22/2024 Gus Sage Type 2 diabetes mellitus with diabetic polyneuropathy E11.42 ; Tinea unguium B35.1 ; Other hammer toe(s) (acquired), right foot M20.41 ; Other hammer toe(s) (acquired), left foot M20.42 and Ingrown nail L60.[address] [address] 10/23/2024 Gus Sage Tinea unguium B35.1 ; Type 2 diabetes mellitus with diabetic polyneuropathy E11.42 ; Other hammer toe(s) (acquired), right foot M20.41 ; Other hammer toe(s) (acquired), left foot M20.42 and Ingrown nail L60.[address] [address] 04/22/2024 [facility] [place] [address] [address] 07/17/[address] [address] 07/18/2024 [facility] [place] [address] [address] 07/22/2024 Gus Sage Assessments Encounter Date Diagnosis [...] Treatment Pending Test Test Name Order Date 39332-PNEGRNE NAIL, 6 OR MORE 01/22/2024 43822-JYSONCZ NAIL, 6 OR MORE 10/23/2024 45820-Agqausra Plate 10/23/2024 92576-Cwywazvz Plate 01/22/2024 52104-HIPD SKIN LESIONS, 2 TO 4 01/22/20 24 23865-PZAP SKIN LESIONS, 2 TO 4 09/14/19 23 92347-MCWO SKIN LESIONS, 2 TO 4 01/18/20 23 82893-MXAW SKIN LESIONS, 2 TO 4 10/24/19 25 Next Appt Details Provider Name:Gus Buck Sage , 02/05/2025 09:45:00 AM, [address] [address], [place], [address], Insurance Providers Payer Name Payer Address Payer Phone Subscriber Number Group Number Insured Name Patient Relationship to Insured Coverage Start Date Coverage End Date [facility] [employer] Claims [address] [place] [id number] Casey Boss Self - patient is the insured Medical (General) History Medical History History ICD Code Anxiety Back,Hip,and Knee pain Depression Diabetic Gout Heart disease High blood pressure Osteoporosis Psoriasis/eczema Stroke Hypercholesterolemia Surgical History Surgery Date(Month/Year) cataract surgery 10/2022, 12/2022
== END 2024-12-01 10:37 | disposition home or self-care (01) ==
LOC: HO.MRI 10:36
PROVIDERS: PCP Registered Nurse; Visit Provider Internal Medicine
DX: M47.26 Other spondylosis with radiculopathy, lumbar region (principal); R26.2 Difficulty in walking, not elsewhere classified
CPT/HCPCS: 72148

== ENCOUNTER → 2024-12-01 10:43 | Outpatient (BNV) | payer OTHER, SELFPAY | PROVIDERS: PCP Registered Nurse; Visit Provider Radiology Diagnostic Radiology | DX: M43.16 Spondylolisthesis, lumbar region (principal); M48.061 Spinal stenosis, lumbar region without neurogenic claudication | CPT/HCPCS: 72148 ==

== ENCOUNTER 2025-01-20 08:28 | Outpatient (REF) | payer OTHER, SELFPAY ==
--- OUTSIDE RECORDS SUMMARY | 2023-09-12 05:00 | XMS_ITS ---
Author Organization [facility] Address [address] [place] [address] Care Team Providers Care Exchange Mechanic Name Role Phone Franchesca Sykes Primary Care Provider Gus Mckeon Unavailable [phone] Charles Winston Unavailable [phone] Ratliff Encounters Encounter Location Date Provider Diagnosis [facility] [address] [place] [id number] 09/12/2023 Charles Winston Plan Of Treatment Next Appt Details Provider Name:Gus Sage , 02/05/2025 09:45:00 AM, [address], [id number], Progress Notes * Casey CASTREJONDOB:[birth year] (69 yo M)Acc No.[id number]:09/12/2023 Progress Note Patient: Casey FARIAS Provider: Thu Clemens DPM :1955 A ge:68 Y S ex:Male Date:09/12/2023 Address:[address] [id number] Pcp:Franchesca Sykes Subjective: * Chief Complaints: * [address] Ratliff. * Medical History: Objective: * Vitals: Assessment: Plan: * Treatment: * Images: * The named appointment provid er may or may not be the originator of this progress note, and it is not deemed complete until electronically signed by the appointment provider. Sign off status: Pending * Provider: Thu Clemens DPM Date: 0 09/12/2023 Generated for Citlalli mayfield/Betsy/Miguel on: 1 03/23/2024 08:44 AM EST
--- OUTSIDE RECORDS SUMMARY | 2024-01-02 05:00 | XMS_ITS ---
Author Organization [facility] Address [address] [place] [address] Care Team Providers Care Beef Killer Name Role Phone Franchesca Sykes Primary Care Provider Gus Mckeon Unavailable [phone] Charlotte Abraham Unavailable [phone] Encounters Encounter Location Date Provider Diagnosis [facility] [address] [place] [address] 01/02/2024 Charlotte Abraham Plan Of Treatment Next Appt Details Provider Name:Gus Sage , 02/05/2025 09:45:00 AM, [address], [address], Progress Notes * Casey CASTREJONDOB:[birth year] (69 yo M)Acc No.[id number]:01/02/2024 Progress Note Patient: Fredy JACKSONDARIUSZ Casey Provider: Teagan Abraham DPM :1955 A ge:68 Y S ex:Male Date:01/02/2024 Address:[address] [id number] Pcp:Franchesca Sykes Subjective: * Chief Complaints: * * Medical History: Objective: * Vitals: Assessment: Plan: * Treatment: * Images: * The named appointment provid er may or may not be the originator of this progress note, and it is not deemed complete until electronically signed by the appointment provider. Sign off status: Pending * Provider: Teagan Abraham DPM Date: 03/03/2023 Generated for Citlalli mayfield/Betsy/Miguel on: 1 03/23/2024 08:45 AM EST
--- OUTSIDE RECORDS SUMMARY | 2024-01-02 05:00 | XMS_ITS ---
Author Organization [facility] Address [address] [place] [address] Care Team Providers Care Overhead Worker Name Role Phone Franchesca Sykes Primary Care Provider Gus Mckeon Unavailable [phone] Charles Winston Unavailable [phone] REASON FOR VISIT Transfer to Different Provider Encounters Encounter Location Date Provider Diagnosis [facility] [address] [place] [address] 01/02/2024 Charles Winston Plan Of Treatment Next Appt Details Provider Name:Gus Sage , 02/05/2025 09:45:00 AM, [address] [address], [place], [address], Progress Notes * Casey CASTREJONDOB:[birth year] (69 yo M)Acc No.[id number]:01/02/2024 Progress Note Patient: Casey FARIAS Provider: Thu Clemens DPM :1955 A ge:68 Y S ex:Male Date:01/02/2024 Address:[address] [id number] Pcp:Franchesca Sykes Subjective: * Chief Complaints: * 1 . Transfer to Different Provider. * Medical History: Objective: * Vitals: Assessment: Plan: * Treatment: * Images: * The named appointment provid er may or may not be the originator of this progress note, and it is not deemed complete until electronically signed by the appointment provider. Sign off status: Pending * Provider: Thu Clemens DPM Date: 03/03/2023 Generated for Citlalli mayfield/Betsy/Miguel on: 03/23/2024 08:44 AM EST
--- OUTSIDE RECORDS SUMMARY | 2024-04-22 05:00 | XMS_ITS ---
Author Organization [facility] Address [address] [place] [address] Care Team Providers Care Assembler Dielectric Heater Name Role Phone Franchesca Sykes Primary Care Provider Gus Mckeon Unavailable [phone] Encounters Encounter Location Date Provider Diagnosis [facility] [address] [address] 04/22/2024 Gus Sage Plan Of Treatment Next Appt Details Provider Name:Gus Sage , 02/05/2025 09:45:00 AM, [address] [address], [place], [address], Progress Notes * Maciej CASTREJONB:[birth year] (69 yo M)Acc No.[id number]:04/22/2024 Progress Note Patient: Casey FARIAS Provider: Reba Sage DPM :1955 A ge:69 Y S ex:Male Date:04/22/2024 Address:[address] [place] Pcp:Franchesca Sykes Subjective: * Chief Complaints: * * Medical History: Objective: * Vitals: Assessment: Plan: * Treatment: * Images: * The named appointment provid er may or may not be the originator of this progress note, and it is not deemed complete until electronically signed by the appointment provider. Sign off status: Pending * Provider: Reba Sage DPM Date: 0 04/22/2024 Generated for Citlalli mayfield/Betsy/eTransmitting on: 1 03/23/2024 08:45 AM EST
--- OUTSIDE RECORDS SUMMARY | 2024-07-17 04:30 | XMS_ITS ---
Author Organization [facility] Address [address] [place] [address] Care Team Providers Care Bulb Weeder Name Role Phone Franchesca Sykes Primary Care Provider Gus Mckeon Unavailable [phone] Encounters Encounter Location Date Provider Diagnosis [facility] [address] [address] 07/17/2024 Gus Sage Plan Of Treatment Next Appt Details Provider Name:Gus Sage , 02/05/2025 09:45:00 AM, [address] [address], [place], [address], Progress Notes * Maciej CASTREJONB:[birth year] (69 yo M)Acc No.[id number]:07/17/2024 Progress Note Patient: Casey FARIAS Provider: Reba Sage DPM :1955 A ge:69 Y S ex:Male Date:07/17/2024 Address:[address] [place] Pcp:Franchesca Sykes Subjective: * Chief Complaints: * * Medical History: Objective: * Vitals: Assessment: Plan: * Treatment: * Images: * The named appointment provid er may or may not be the originator of this progress note, and it is not deemed complete until electronically signed by the appointment provider. Sign off status: Pending * Provider: Reba Sage DPM Date: 0 07/17/2024 Generated for Citlalli mayfield/Betsy/eTransmitting on: 1 03/23/2024 08:44 AM EST
--- OUTSIDE RECORDS SUMMARY | 2024-10-10 10:15 | XMS_ITS ---
Author Organization [facility] Address [address] [place] [address] Care Team Providers Care Bow Maker Custom Name Role Phone Franchesca Sykes Primary Care Provider Gus Mckeon Unavailable [phone] Encounters Encounter Location Date Provider Diagnosis [facility] [address] [address] 10/10/2024 Gus Sage Plan Of Treatment Next Appt Details Provider Name:Gus Sage , 02/05/2025 09:45:00 AM, [address] [address], [place], [address], Progress Notes * Maciej CASTREJONB:[birth year] (69 yo M)Acc No.[id number]:10/10/2024 Progress Note Patient: Casey FARIAS Provider: Reba Sage DPM :1955 A ge:69 Y S ex:Male Date:10/10/2024 Address:[address] [id number] Pcp:Franchesca Sykes Subjective: * Chief Complaints: * * Medical History: Objective: * Vitals: Assessment: Plan: * Treatment: * Images: * The named appointment provid er may or may not be the originator of this progress note, and it is not deemed complete until electronically signed by the appointment provider. Sign off status: Pending * Provider: Reba Sage DPM Date: 0 10/10/2024 Generated for Citlalli mayfield/Betsy/eTransmitting on: 1 03/23/2024 08:45 AM EST
[2025-01-20 09:37] LABS: Anion Gap 15 (12-20); Blood Urea Nitrogen 14 mg/dL (9-16); Calcium 10.0 mg/dL (8.4-10.2); Carbon Dioxide 24 mmol/L (22-29); Chloride 106 mmol/L (96-108); Estimated Glomerular Filt Rate > 60; Potassium 4.6 mmol/L (3.3-5.1); Sodium 140 mmol/L (135-145)
== END 2025-01-20 08:29 | disposition home or self-care (01) ==
LOC: HO.LAB 08:28
PROVIDERS: PCP Registered Nurse; Visit Provider Internal Medicine
DX: I25.10 Atherosclerotic heart disease of native coronary artery without angina pectoris (principal)
CPT/HCPCS: 36415; 80048